=== PATIENT | female | born 1980 | race Caucasian/White ===

== ENCOUNTER 2016-12-04 18:28 | Inpatient (IN) | payer MEDICARE ==
[~2016-12-04] VITALS: Ht 167.6 cm; Wt 61.2 kg
[~2016-12-04 18:28] MED LIST: ADDE20CA PO; IBUPOTC PO; LAMI1TAB7 PO; LEVA500T PO; NORA0.35 PO; PROZ20CA11 PO; VENL37.5 OR; VENL75TA2 OR; VICO5TAB16 PO; VIIBRYD PO
[2016-12-04 18:56] LABS: MEAN CORPUSCULAR HEMOGLOBIN 29.2 pg (27.0-33.0); MEAN CORPUSCULAR HGB CONC 33.1 g/dl (32.0-36.5); MEAN CORPUSCULAR VOLUME 88.2 fl (80.0-96.0); RED CELL DISTRIBUTION WIDTH 14.3 % (11.5-14.5); WHITE BLOOD COUNT 5.6 K/mm3 (4.0-10.0)
[2016-12-04 19:09] LABS: CONTROL LINE HCG INT CTR LINE PRESENT
[2016-12-04 19:27] LABS: ALBUMIN 4.1 GM/DL (3.2-5.2); ALBUMIN/GLOBULIN RATIO 1.41 (1.00-1.93); ALKALINE PHOSPHATASE 77 U/L (45-117); ALT/SGPT 27 U/L (12-78); ANION GAP 9 MEQ/L (8-16); AST/SGOT 16 U/L (15-37); BILIRUBIN,DIRECT 0.1 MG/DL (0.0-0.2); BILIRUBIN,TOTAL 0.4 MG/DL (0.2-1.0); BLOOD UREA NITROGEN 8 MG/DL (7-18); CALCIUM LEVEL 8.4 MG/DL (8.5-10.1); CARBON DIOXIDE LEVEL 26 MEQ/L (21-32); CHLORIDE LEVEL 104 MEQ/L (98-107); CREATININE FOR GFR 0.95 MG/DL (0.55-1.02); GLOMERULAR FILTRATION RATE > 60.0 (>60); GLUCOSE, FASTING 85 MG/DL (70-105); POTASSIUM SERUM 3.9 MEQ/L (3.5-5.1); SODIUM LEVEL 139 MEQ/L (136-145)
[2016-12-04 21:39] LABS: AMPHETAMINES LEVEL URINE NEGATIVE (NEGATIVE); BENZODIAZEPINES URINE POSITIVE (NEGATIVE); COCAINE METABOLITE URINE NEGATIVE (NEGATIVE); CONTROL LINE INT CTR LINE PRESENT; METHADONE URINE NEGATIVE (NEGATIVE); OPIATES URINE NEGATIVE (NEGATIVE); TRICYCLIC ANTIDEPRESS URINE NEGATIVE (NEGATIVE)
[2016-12-04] MEDS ORDERED: PROP10TA56 PO (22:54)
[2016-12-04] MEDS ORDERED: METH20TA29 PO (22:54)
[2016-12-04] MEDS ORDERED: LORA2TAB9 PO (22:54)
[2016-12-04] MEDS ORDERED: DIAZ10TA2 PO (22:54)
[2016-12-04] MEDS ORDERED: LORazepam 1 MG TAB PO PRN (23:00)
[2016-12-04] MEDS ORDERED: ACETAMINOPHEN TAB 650MG DOSE (2X325MG) PO PRN (23:15)
[2016-12-04] MEDS ORDERED: MOM 30ML SUSPENSION UDC PO PRN (23:15)
[2016-12-04] MEDS ORDERED: MAALOX 30 ML SUSP *UDC PO PRN (23:15)
[2016-12-04] MEDS ORDERED: traZODone 50 MG TAB PO PRN (23:15)
--- NOTE | 2016-12-04 23:40 | EDDOCDS ---
Nurse's Notes [facility] Name: Robert Wagner Age: 36 yrs Sex: Female : 1980 Arrival Date: 12/04/2016 Time: 18:[address] MD: Diagnosis: Bipolar disorder, current episode depressed, severe, without psychotic features Presentation: 12/04 18:32 Presenting complaint: Patient states: intentional overdose at approx 1745 of 12 - 2 mg pml ativan tabs. called ems. alert and oriented, states she is a little tired. Adult Sepsis Screening: The patient does not have new or worsening altered mentation. Patient's respiratory rate is less than 22. Systolic blood pressure is greater than 100. Patient has a qSOFA score of 0- Negative Sepsis Screen. Suicide/Homicide risk assessment- The patient admits to and/or has been reported to be having suicidal ideations. The patient reports that he/she has not been admitted to an inpatient mental health facility in the last 30 days. The patient reports that he/she does not have a recent or current history of substance abuse. The patient reports that he/she has a prior history of suicide attempt and/or organized plan. The patient reports that he/she has experienced a significant life altering event in the last 30 days. The patient reports that he/she lacks adequate social support. The patient reports he/she has no significant chronic medical condition(s). 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 Transition of care: patient was not received from another setting of care. 18:32 Acuity: SHAHBAZ Level 3 pml 18:32 Method Of Arrival: Ambulance pml Triage Assessment: 22:44 Pt Declines HIV testing. kas2 MAMMOGRAPHY TECH: 18:38 LMP 12/04/2016 pml Historical: - Allergies: Augmentin (Vomit); - Home Meds: 1. Lamictal 100 mg oral tab 1 tab three times a day 2. fluoxetine 40 mg Oral cap 1 cap once daily 3. methylphenidate 20 mg Oral SC40 1 cap twice a day 4. propranolol 10 mg Oral tab 1 tab 3 times per day 5. lorazepam 2 mg Oral tab every 6 hours 6. oxycodone 5 mg Oral tab 1 tab daily 7. diazepam 10 mg Oral tab daily - PMHx: Bipolar disorder; - PSHx: Appendectomy; D & C; - Social history: No barriers to communication noted, The patient speaks fluent Swedish, Speaks appropriately for age, Smoking status: Patient uses tobacco products, current every day smoker. - Family history: Not pertinent. - : The pt / caregiver states he / she is not on anticoagulants. Home medication list is obtained from the patient. - Exposure Risk Screening:: None identified. Screenin:16 Screening information is obtained from the patient. Fall risk: No risks identified. kas2 Assistance ADL's: requires no assistance with activities of daily living. Abuse/DV Screen: The patient / caregiver reports he/she is: not in a situation that causes fear, pain or injury. Nutritional screening: No deficits noted. Advance Directives: Currently, there is no health care proxy. There is no active DNR order. There is no living will. There is no Power of Porcelain Waxer. home support is adequate. Assessment: 18:54 General: Appears in no apparent distress, Behavior is appropriate for age, cooperative, po pleasant. Pain: Denies pain. Neurological: Level of Consciousness is awake, alert, Oriented to person, place, time, Manufacturing Controller are equal bilaterally Moves all extremities. Speech is normal, Facial symmetry appears normal, Pupils are PERRLA. Cardiovascular: Rhythm is sinus rhythm. Respiratory: Airway is patent Respiratory effort is even, unlabored, Breath sounds are clear bilaterally. GI: Abdomen is flat, non- distended Bowel sounds present X 4 quads. Abd is soft and non tender X 4 quads. Derm: Skin is intact, is healthy with good turgor, Skin is pink, warm & dry. 19:02 General: Verbal report given by Diogo Lorenzo RN. Assumed care of patient at this time.. kas2 19:05 General: spoke with poison control, recommendations discussed with Thomas SCHAEFERP. po 20:17 General: Appears in no apparent distress, comfortable, well nourished, well groomed, kas2 Behavior is appropriate for age, cooperative. Pain: Denies pain. Neurological: Level of Consciousness is awake, alert, Oriented to person, place, time. Cardiovascular: Capillary refill < 3 seconds Heart tones S1 S2 present Rhythm is sinus rhythm No ectopy. Respiratory: Airway is patent Respiratory effort is even, unlabored, Respiratory pattern is regular, symmetrical, Breath sounds are clear bilaterally. GI: Abdomen is flat, non- distended Bowel sounds present X 4 quads. Abd is soft and non tender X 4 quads. Derm: Skin is intact, is healthy with good turgor, Skin is dry, Skin is pink, warm & dry. Skin temperature is warm. 21:30 General: Patient laying in bed sleeping at this time. No apparent distress noted. kas2 Appears comfortable. Airway patent and respiratory pattern even and unlabored. Call carrasco within reach. Will continue to monitor.. 22:27 General: Appears in no apparent distress, comfortable, Behavior is appropriate for age, kas2 cooperative. Pain: Denies pain. Neurological: Level of Consciousness is awake, alert, Oriented to person, place, time. Cardiovascular: Rhythm is sinus rhythm No ectopy. Respiratory: Airway is patent Respiratory effort is even, unlabored, Respiratory pattern is regular, symmetrical. Derm: Skin is intact, Skin is dry, Skin is pink, warm & dry. Skin temperature is warm. 22:42 General: As RN was taking patients IV out patient stated to RN " I guess I did not take kas2 enough of the pills this time.". 22:43 General: Patient moved over to P4 via stretcher with RN, and all of her [facility] belongings. Verbal report given to Reba Matos LPN.. 22:51 General: Appears in no apparent distress, comfortable, Behavior is cooperative. slm General: pt resting on stretcher s/o in room security observing . Respiratory: Airway is patent Respiratory effort is even, unlabored. Mental Health Eval: 21:49 Mental health consult is initiated at 21:30. 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 [facility] Behavioral Health: The patient is not an established patient of [facility] Behavioral Health. Referral Information: Evaluation referral is generated by [facility]. The patient was referred for evaluation because pt attempted to kill self by ingesting a handful(approximately 12 tablets) of Ativan. Subjective: The patients chief complaint is pt states, "I just couldn't take it anymore, my Bi-polar is getting worse." Pt reports feeling overwhelmed with life and feels her illness is not going to get better. Pt states, "I feel like I'm a burden to my and to my children,that's why I tried to end my life tonight." She reports suffering from Bi-polar Disorder for many years, currently seeks tx with Dr. Wood who has tired numerous medications with no effect. She describes her symptoms as "I'm really happy or severely depressed, I just wanted to fall asleep and never wake up." Pt is unable to identify any other trigger, other than her mental health illness. She continues to voice SI, no plan. Pt's was present during attempt. Pt's children(ages 7 and 10) were home, however did not witness ingestion. Mother reports the children were in the living room and pt was in the kitchen. . Delusions are denied. Patient's mood is depressed, irritable, Hallucinations are denied. 22:04 Mental Health history: Bipolar Disorder, Mental Health Admissions: Hx of ml4 hospitalizations at the [facility] and [place](Jun, 2014). Last admitted to [facility] was 07/20/12 and d/c 07/22/12. Current Outpatient Mental Health Services: Psychiatrist / Agency: Dr. Garibay, Last seen 12/02/16. . Current living environment is Family / Home Support: spouse and 2 children. The patient is . Patient presents to Emergency Department with the following symptoms within the past 2 weeks: anxiety, decreased appetite, depressed mood, feelings of helplessness/hopelessness, poor concentration, poor impulse control, sleep disturbance - insomnia, suicidal ideation with attempt/gesture by pills. Substance abuse: Patient uses tobacco less than a 1/2 a pack Frequency daily. Mental status exam: Patients appearance is appropriate, Patient's behavior is cooperative, Speech is normal. Affect is flat. Mood is depressed. Hallucinations are denied. Appetite is poor during the day, but binges at night. Memory is good. Energy level is normal. Content of thought is depressive. due to suicide attempt Thought process is intact. Cognitive level is oriented to person, place, time and situation Patient's insight is poor. Judgement is poor. Rapport with interviewer is guarded. Suicidal Ideation is present with no specific plan. Homicidal ideation is denied. Disposition: Medically cleared for disposition by Yennifer GUSTAFSON. Narrative: Awaiting medical clearance.... 22:36 Disposition: Medically cleared for disposition by Yennifer GUSTAFSON Psychiatric Consult 4 is performed by phone with Dr Jacqueline Saleem. [facility] Admission Criteria: The patient has had a suicide attempt in the recent past. as described above . The patient is experiencing suicidal ideation. The patient requires continuous observation and/or control to protect self, others or property. The patient's care requires a multi-modal treatment plan under close supervision and coordination due to the complexity and severity of the patient's symptoms. The patient requires administration and monitoring of psychoactive medications by skilled medical providers due to the side effects of the psychoactive medications or significant dosage adjustments. Legal Status: Patient's legal status will be Emergency admission: . [place] Safe Act: [place] Safe Act is applicable to this patient. The patient poses a risk to self or other and the Nursing Rehabilitation Nurse has been notified. He/She will enter the patient's data. DSM-V Differential Diagnosis: Bipolar I Disorder (F31.0) Current or most recent episode unspecified (F31.9). Narrative: Notice of Status and Rights, FAQ, and Bill of Rights was given at bedside. Awaiting: transfer to [facility]. 23:11 Insurance Pre-Certification: Not Required, "Straight Medicare" . ml4 Vital Signs: 18:39 BP 130 / 88 (auto/); kas2 18:40 BP 120 / 90 RA Supine (auto/reg); Pulse 84; Resp 16; Temp 98.0(O); Pulse Ox 99% on R/A; rs6 Weight 54.43 kg; Height 5 ft. 6 in. (167.64 cm) (R); Pain 0/10; 18:40 Pulse 89 MON; Pulse Ox 98% ; kas2 18:40 Resp 18; Temp 99.0(O); Pain 0/10; kas2 18:45 BP 125 / 88 (auto/); kas2 18:45 Pulse 83 MON; Pulse Ox 98% ; kas2 19:00 BP 115 / 82 (auto/); kas2 19:00 Pulse 79 MON; Pulse Ox 97% ; kas2 19:15 BP 113 / 84 (auto/); kas2 19:15 Pulse 84 MON; kas2 19:30 BP 104 / 72 (auto/); kas2 19:30 Pulse 80 MON; kas2 19:45 BP 93 / 65 (auto/); kas2 19:45 Pulse 84 MON; kas2 20:00 BP 108 / 67 (auto/); kas2 20:00 Pulse 83 MON; kas2 20:15 BP 115 / 86 (auto/); kas2 20:15 Pulse 83 MON; kas2 20:30 BP 118 / 82 (auto/); kas2 20:30 Pulse 83 MON; kas2 20:30 Resp 20; Temp 97.9(O); Pain 0/10; kas2 20:45 BP 123 / 86 (auto/); kas2 20:45 Pulse 87 MON; kas2 21:00 BP 115 / 82 (auto/); kas2 21:00 Pulse 87 MON; kas2 21:15 BP 105 / 79 (auto/); kas2 21:15 Pulse 90 MON; Pulse Ox 97% ; kas2 21:30 BP 113 / 79 (auto/); kas2 21:30 Pulse 85 MON; Pulse Ox 97% ; kas2 21:45 BP 104 / 72 (auto/); kas2 21:45 Pulse 90 MON; Pulse Ox 95% ; kas2 22:00 BP 97 / 59 (auto/); kas2 22:00 Pulse 89 MON; kas2 22:15 BP 102 / 62 (auto/); kas2 22:15 Pulse 82 MON; Pulse Ox 95% ; kas2 22:30 BP 106 / 65 (auto/); kas2 22:30 Pulse 88 MON; Pulse Ox 96% ; kas2 23:36 BP 103 / 74; Pulse 95; Resp 16; Temp 98.8; Pulse Ox 96% on R/A; Pain 2/10; slm 18:40 Body Mass Index 19.37 (54.43 kg, 167.64 cm) rs6 Vitals: 18:40 Log In Time N/A - ambulance arrival. rs6 ED Course: 18:28 Patient visited by Mary Donohue, Skimmer Reverberatory. deg 18:28 Patient moved to Waiting deg 18:29 Diogo Lorenzo,CAREN is Primary Nurse. deg 18:29 Patient moved to 2 deg 18:33 [facility] le 18:34 Triage Initiated pml 18:35 Patient visited by Yennifer Lombardi FNP. le 18:35 Patient visited by Yennifer Lombardi FNP. le 18:39 Patient visited by Mercy Martin,CAREN. pml 18:40 Patient visited by Mercy Martin,CAREN. pml 18:40 Pt greeted and oriented to ED. Patient advised of names of staff involved in care, rs6 location of call carrasco, wait times and NPO status. Patient has correct armband on for positive identification. Placed in psych safe attire. Bed in low position. Call light in reach. Side rails up X 1. fbi investigator on. Pulse ox on. NIBP on. 18:41 Patient visited by Carolyn Vora, HAND TIER. rs6 18:58 Patient visited by Diogo Lorenzo,CAREN. po 19:01 Radha Webster RN is Primary Nurse. kas2 19:06 Primary Nurse role handed off by Diogo Lorenzo,RN po 19:16 Patient visited by Justin Rogers PCA. jmv 19:16 EKG done. (by ED staff). Reviewed by Yennifer GUSTAFSON. jmv 20:09 [facility] Payment Agreement was scanned into [employer] and attached to record. ks16 20:17 Patient visited by Radha Webster RN. kas2 20:19 Patient visited by Radha Webster RN. kas2 21:03 Patient visited by Radha Webster RN. kas2 21:18 Drug Eval Toxicology ED Only Sent. jlm 21:35 Patient visited by Radha Webster RN. kas2 22:28 Patient visited by Radha Webster RN. kas2 22:37 Patient moved to [address] 22:44 Patient visited by Radha Webster RN. kas2 22:44 Discontinued IV bleeding controlled, pressure dressing applied, No redness/swelling at [facility] site. No procedures done that require assistance. 22:52 Patient visited by Reba Maots LPN. [facility] 22:52 The patient / caregiver is instructed regarding the plan of care and ED course. sl 22:59 Jacqueline Saleem is Hospitalizing Provider. le 23:09 Patient visited by Iker Miranda. mas 23:10 [facility] Legal paperwork was scanned into [employer] and attached to record. ml4 23:37 Patient visited by Reba Matos LPN. sl Attachments: 23:10 [facility] Legal paperwork ml4 Order Results: Lab Order: Acetaminophen Level; SPEC'M 12/04/16 18:39 Test: ACETAMINOPHEN LEVEL; Value: < 2.0; Range: 10.0-30.0; Abnormal: Below low normal; Units: UG/ML; Status: F Lab Order: Basic Metabolic Profile; SPEC'M 12/04/16 18:39 Test: GLUCOSE, FASTING; Value: 85; Range: 70-105; Units: MG/DL; Status: F Test: BLOOD UREA NITROGEN; Value: 8; Range: 7-18; Units: MG/DL; Status: F Test: CREATININE FOR GFR; Value: 0.95; Range: 0.55-1.02; Units: MG/DL; Status: F Test: SODIUM LEVEL; Range: 136-145; Units: MEQ/L; Status: I Test: POTASSIUM SERUM; Range: 3.5-5.1; Units: MEQ/L; Status: I Test: CHLORIDE LEVEL; Range: 98-107; Units: MEQ/L; Status: I Test: CARBON DIOXIDE LEVEL; Range: 21-32; Units: MEQ/L; Status: I Test: ANION GAP; Range: 8-16; Units: MEQ/L; Status: I Test: CALCIUM LEVEL; Range: 8.5-10.1; Units: MG/DL; Status: I Test: GLOMERULAR FILTRATION RATE; Value: > 60.0; Range: >60; Status: F Test: SODIUM LEVEL; Value: 139; Range: 136-145; Units: MEQ/L; Status: F Test: POTASSIUM SERUM; Value: 3.9; Range: 3.5-5.1; Units: MEQ/L; Status: F Test: CHLORIDE LEVEL; Value: 104; Range: 98-107; Units: MEQ/L; Status: F Test: CARBON DIOXIDE LEVEL; Value: 26; Range: 21-32; Units: MEQ/L; Status: F Test: ANION GAP; Value: 9; Range: 8-16; Units: MEQ/L; Status: F Test: CALCIUM LEVEL; Value: 8.4; Range: 8.5-10.1; Abnormal: Below low normal; Units: MG/DL; Status: F Test Note: ; Units are mL/min/1.73 m2 Chronic Kidney Disease Staging per NKF: Stage I & II GFR >=60 Normal to Mildly Decreased Stage III GFR 30-59 Moderately Decreased Stage IV GFR 15-29 Severely Decreased Stage V GFR <15 Very Little GFR Left ESRD GFR <15 on EMPLOYEE BENEFITS COORDINATOR Lab Order: Complete Blood Count; SPEC'M 12/04/16 18:39 Test: WHITE BLOOD COUNT; Value: 5.6; Range: 4.0-10.0; Units: K/mm3; Status: F Test: RED BLOOD COUNT; Value: 5.22; Range: 4.00-5.40; Units: M/mm3; Status: F Test: HEMOGLOBIN; Value: 15.2; Range: 12.0-16.0; Units: g/dl; Status: F Test: HEMATOCRIT; Value: 46.0; Range: 36.0-47.0; Units: %; Status: F Test: MEAN CORPUSCULAR VOLUME; Value: 88.2; Range: 80.0-96.0; Units: fl; Status: F Test: MEAN CORPUSCULAR HEMOGLOBIN; Value: 29.2; Range: 27.0-33.0; Units: pg; Status: F Test: MEAN CORPUSCULAR HGB CONC; Value: 33.1; Range: 32.0-36.5; Units: g/dl; Status: F Test: RED CELL DISTRIBUTION WIDTH; Value: 14.3; Range: 11.5-14.5; Units: %; Status: F Test: PLATELET COUNT, AUTOMATED; Value: 225; Range: 150-450; Units: k/mm3; Status: F Lab Order: Drug Eval Toxicology ED Only; SPEC'M 12/04/16 21:14 Test: AMPHETAMINES LEVEL URINE; Value: NEGATIVE; Range: NEGATIVE; Status: F Test: BARBITURATES URINE; Value: NEGATIVE; Range: NEGATIVE; Status: F Test: BENZODIAZEPINES URINE; Value: POSITIVE; Range: NEGATIVE; Abnormal: Above high normal; Status: F Test: CANNABINOIDS URINE; Value: NEGATIVE; Range: NEGATIVE; Status: F Test: COCAINE METABOLITE URINE; Value: NEGATIVE; Range: NEGATIVE; Status: F Test: METHADONE URINE; Value: NEGATIVE; Range: NEGATIVE; Status: F Test: OPIATES URINE; Value: NEGATIVE; Range: NEGATIVE; Status: F Test: TRICYCLIC ANTIDEPRESS URINE; Value: NEGATIVE; Range: NEGATIVE; Status: F Test Note: ; ALL PRESUMPTIVE POSITIVE FINDINGS ARE UNCONFIRMED NORMAL VALUES THRESHOLD IN NG/ML AMPHETAMINES 1000 METHAMPHETAMINES 1000 BARBITURATES 300 BENZODIAZEPINES 300 CANNABINOIDS (THC) 50 COCAINE METABOLITE 300 METHADONE 300 OPIATES 300 PHENCYCLIDINE 25 TRICYCLIC ANTIDEPRESSANTS 1000 RESULTS ARE FOR MEDICAL PURPOSES ONLY. ALL URINE SPECIMENS WILL BE SAVED FOR 3 DAYS. IF CONFIRMATION OF A PRESUMPTIVE POSTIVE SCREEN RESULT IS DESIRED, CALL CHEMISTRY ([phone]) AND REQUEST URINE TO BE SENT TO REFERENCE LAB. FOR A LIST OF CLOSELY RELATED COMPOUNDS PLEASE CALL THE LAB. Lab Order: Ethyl Alcohol (ethanol); SPEC12/04/16 18:39 Test: ETHYL ALCOHOL (ETHANOL); Value: < 0.003; Range: 0.000-0.010; Units: %; Status: F Lab Order: HCG,Serum Qualitative; SPEC12/04/16 18:39 Test: HCG, SERUM QUALITATIVE; Value: NEGATIVE; Range: NEGATIVE; Status: F Lab Order: Liver Profile; 12/04/16 18:39 Test: AST/SGOT; Value: 16; Range: 15-37; Units: U/L; Status: F Test: ALT/SGPT; Value: 27; Range: 12-78; Units: U/L; Status: F Test: ALKALINE PHOSPHATASE; Value: 77; Range: 45-117; Units: U/L; Status: F Test: BILIRUBIN,TOTAL; Value: 0.4; Range: 0.2-1.0; Units: MG/DL; Status: F Test: BILIRUBIN,DIRECT; Value: 0.1; Range: 0.0-0.2; Units: MG/DL; Status: F Test: TOTAL PROTEIN; Value: 7.0; Range: 6.4-8.2; Units: GM/DL; Status: F Test: ALBUMIN; Value: 4.1; Range: 3.2-5.2; Units: GM/DL; Status: F Test: ALBUMIN/GLOBULIN RATIO; Value: 1.41; Range: 1.00-1.93; Status: F Lab Order: Salicylate Level; SPEC12/04/16 18:39 Test: SALICYLATE LEVEL; Value: 3.9; Range: 5.0-30.0; Abnormal: Below low normal; Units: MG/DL; Status: F Lab Order: Thyroid Stimulating Hormone; SPEC12/04/16 18:39 Test: THYROID STIMULATING HORMONE; Value: 0.875; Range: 0.358-3.740; Units: uIU/ML; Status: F Outcome: 22:44 No special radiology studies were completed. kas2 22:52 Property removed, inventory done, secured in belongings bag- placed in locked locker. [facility] 22:59 Decision to Hospitalize by Provider. le 23:20 Discharge Assessment: patient administered narcotics - no. [facility] 23:37 The following High Risk Discharge criteria are identified: None. Admitted to [facility] accompanied by tech, via wheelchair, with chart. Condition: good. 23:39 Patient left the ED. [facility] Signatures: Mary Donohue, Sk[employer] R[employer]ber[employer] Unit deg Diogo Lorenzo,RN RN po Elvira Crews, PSA PSA ml4 Yennifer Lombardi, ALLIGATOR SHEAR OPERATOR ALLIGATOR SHEAR OPERATOR Iker Ames Paulina,RN RN Reba Robledo,INSTALLERS MECHANICAL INSTALLERS MECHANICAL [facility] Bria Chauhan, [employer] jlm Carolyn Vora, HAND TIER HAND TIER rs6 Jacqueline Garcia, Reg Reg ks16 Radha WebsterRN CAREN [facility] Justin Rogers, HAND TIER HAND TIER jmv Corrections: (The following items were deleted from the chart) 22:16 21:49 Subjective: The patients chief complaint is pt states, "I just couldn't take it ml4 anymore, my Bi-polar is getting worse." Pt reports feeling overwhelmed with life and feels her illness is not going to get better. Pt states, "I feel like I'm a burden to my and to my children." . ml4 MTDD
--- NOTE | 2016-12-04 23:40 | EDDOCDS ---
Physician Documentation [facility] Name: Robert Wagner Age: 36 yrs Sex: Female : 1980 Arrival Date: 12/04/2016 Time: 18:28 Bed [facility] Private MD: Disposition: 12/04 22:59 Critical Care: Critical care not applicable. le Disposition: 12/04/16 22:59 Hospitalization ordered by Jacqueline Saleem for Inpatient Admission. Preliminary diagnosis is Bipolar disorder, current episode depressed, severe, without psychotic features. - Bed requested for Admit. - Status is Inpatient Admission. slm - Condition is Stable. - Problem is an acute exacerbation. - Symptoms are unchanged. Historical: - Allergies: Augmentin (Vomit); - Home Meds: 1. Lamictal 100 mg oral tab 1 tab three times a day 2. fluoxetine 40 mg Oral cap 1 cap once daily 3. methylphenidate 20 mg Oral SC40 1 cap twice a day 4. propranolol 10 mg Oral tab 1 tab 3 times per day 5. lorazepam 2 mg Oral tab every 6 hours 6. oxycodone 5 mg Oral tab 1 tab daily 7. diazepam 10 mg Oral tab daily - PMHx: Bipolar disorder; - PSHx: Appendectomy; D & C; - Social history: No barriers to communication noted, The patient speaks fluent Maori, Speaks appropriately for age, Smoking status: Patient uses tobacco products, current every day smoker. - Family history: Not pertinent. - : The pt / caregiver states he / she is not on anticoagulants. Home medication list is obtained from the patient. - Exposure Risk Screening:: None identified. BILL RECAPITULATION CLERK: 18:38 LMP 12/04/2016 pml Vital Signs: 18:39 BP 130 / 88 (auto/); kas2 18:40 BP 120 / 90 RA Supine (auto/reg); Pulse 84; Resp 16; Temp 98.0(O); Pulse Ox 99% on R/A; rs6 Weight 54.43 kg / 120 lbs; Height 5 ft. 6 in. (167.64 cm) (R); Pain 0/10; 18:40 Pulse 89 MON; Pulse Ox 98% ; kas2 18:40 Resp 18; Temp 99.0(O); Pain 0/10; kas2 18:45 BP 125 / 88 (auto/); kas2 18:45 Pulse 83 MON; Pulse Ox 98% ; kas2 19:00 BP 115 / 82 (auto/); kas2 19:00 Pulse 79 MON; Pulse Ox 97% ; kas2 19:15 BP 113 / 84 (auto/); kas2 19:15 Pulse 84 MON; kas2 19:30 BP 104 / 72 (auto/); kas2 19:30 Pulse 80 MON; kas2 19:45 BP 93 / 65 (auto/); kas2 19:45 Pulse 84 MON; kas2 20:00 BP 108 / 67 (auto/); kas2 20:00 Pulse 83 MON; kas2 20:15 BP 115 / 86 (auto/); kas2 20:15 Pulse 83 MON; kas2 20:30 BP 118 / 82 (auto/); kas2 20:30 Pulse 83 MON; kas2 20:30 Resp 20; Temp 97.9(O); Pain 0/10; kas2 20:45 BP 123 / 86 (auto/); kas2 20:45 Pulse 87 MON; kas2 21:00 BP 115 / 82 (auto/); kas2 21:00 Pulse 87 MON; kas2 21:15 BP 105 / 79 (auto/); kas2 21:15 Pulse 90 MON; Pulse Ox 97% ; kas2 21:30 BP 113 / 79 (auto/); kas2 21:30 Pulse 85 MON; Pulse Ox 97% ; kas2 21:45 BP 104 / 72 (auto/); kas2 21:45 Pulse 90 MON; Pulse Ox 95% ; kas2 22:00 BP 97 / 59 (auto/); kas2 22:00 Pulse 89 MON; kas2 22:15 BP 102 / 62 (auto/); kas2 22:15 Pulse 82 MON; Pulse Ox 95% ; kas2 22:30 BP 106 / 65 (auto/); kas2 22:30 Pulse 88 MON; Pulse Ox 96% ; kas2 23:36 BP 103 / 74; Pulse 95; Resp 16; Temp 98.8; Pulse Ox 96% on R/A; Pain 2/10; slm 18:40 Body Mass Index 19.37 (54.43 kg, 167.64 cm) rs6 MDM: 18:29 Consult PFS/PSA/Filling Technician ordered. sd1 18:29 Consult PFS/PSA/Filling Technician: Patient's case requires discussion with on-call sd1 Psychiatrist ordered. 18:29 PSA/PFS to call Nursing [employer] Advanced Operator Maintainer, to enter patient data on [place] Safe Act if patient sd1 involuntarily admitted or transferred for SI or HI ordered. 18:29 Water Rights Specialist/Pulse Ox/q 15 min VS ordered. sd1 18:29 Confirm accurate psychiatric medication list and times of last dosage ordered. sd1 18:29 Detain Pt Until Medically/PFS Cleared ordered. sd1 18:29 IV Saline Lock ordered. sd1 18:30 Acetaminophen Level Ordered. EDMS 18:30 Basic Metabolic Profile Ordered. EDMS 18:30 Complete Blood Count Ordered. EDMS 18:30 Drug Eval Toxicology ED Only Ordered. EDMS 18:30 Ethyl Alcohol (ethanol) Ordered. EDMS 18:30 HCG,Serum Qualitative Ordered. EDMS 18:30 Liver Profile Ordered. EDMS 18:30 Salicylate Level Ordered. EDMS 18:30 Thyroid Stimulating Hormone Ordered. EDMS 18:30 ECG WITH READING ER PHYS+CARDIAG ordered. EDMS 18:34 Call Poison Control ordered. le 19:35 Acetaminophen Level Reviewed. le 19:35 Basic Metabolic Profile Reviewed. le 19:35 Salicylate Level Reviewed. le 19:35 Complete Blood Count Reviewed. le 19:35 Ethyl Alcohol (ethanol) Reviewed. le 19:35 HCG,Serum Qualitative Reviewed. le 19:35 Liver Profile Reviewed. le 19:35 Thyroid Stimulating Hormone Reviewed. le 20:04 Financial registration complete. [email or web address] 20:09 [facility] Payment Agreement was scanned into S[employer]wig[employer] and attached to record. [email or web address] 21:45 Consult PFS/PSA/Filling Technician complete. ml4 21:45 Consult PFS/PSA/Filling Technician: Patient's case requires discussion with on-call 4 Psychiatrist complete. 21:45 PSA/PFS to call Nursing [employer] Advanced Operator Maintainer, to enter patient data on [place] Safe [place] if patient ml4 involuntarily admitted or transferred for SI or HI complete. 22:29 Drug Eval Toxicology ED Only Reviewed. le 22:32 The patient has been medically cleared for psychiatric evaluation, admission and/or le transfer. 22:33 BED REQUEST+ADM ordered. EDMS 23:06 Admit to [facility]: ordered. EDMS 23:07 REGULAR DIET ordered. EDMS 23:10 [facility] Legal paperwork was scanned into Sqwiggle and attached to record. ml4 Signatures: Dispatcher [employer] EDMS Chiquita Mariee MD MD sd1 Diogo Lorenzo,RN RN po Mars, Elvira, PSA PSA ml4 Yennifer Lombardi, LEAD PROJECT MANAGER Mercy Sesay,RN RN Reba Robledo,STATION ATTENDANT STATION ATTENDANT slJacqueline Bryant, Reg Reg [email or web address] The chart was reviewed and I authenticate all verbal orders and agree with the evaluation and treatment provided.Corrections: (The following items were deleted from the chart) 21:11 19:36 Straight cath ordered. [email or web address] Attachments: 20:09 [facility] Payment Agreement [email or web address] MTDD
[2016-12-05 00:02] VITALS: BP 103/68
[2016-12-05] MEDS: FLUoxetine 20 MG CAP PO SCH (09:31)
[2016-12-05] MEDS: PROPRANOLOL 10 MG TAB PO SCH ×3 (09:32→21:43)
[2016-12-05] MEDS: METHYLPHENIDATE 5 MG TAB PO SCH ×2 (09:32→15:21)
[2016-12-05] MEDS: lamoTRIgine 100MG TAB PO SCH ×3 (09:32→21:42)
[2016-12-05 18:00] VITALS: BP 109/74
[2016-12-05] MEDS ORDERED: risperiDONE 1 MG TAB PO SCH (21:00)
--- NOTE | 2016-12-06 06:15 | HPE ---
DATE OF ADMISSION: 12/05/2016 Please refer to the psychiatric history and evaluation for further details on this admission. This examination and history is intended for medical issues which may need treatment, followup or consultation on this 36-year-old female. ALLERGIES: - AMOXICILLIN - AZITHROMYCIN - CLAVULANIC ACID SOCIAL HISTORY: She is . She has two children. She has history of alcohol abuse. She smokes one pack of cigarettes per day. Recreational drug use - none. PAST MEDICAL HISTORY: Negative. PAST SURGICAL HISTORY: approximately 14 years ago. She has had wisdom teeth extraction and appendectomy. FAMILY HISTORY: Noncontributory. LABORATORY STUDIES: CBC normal. Electrolytes normal. BUN and creatinine 8 and 0.95. Urine was positive for benzodiazepines. REVIEW OF SYSTEMS: Ten systems review was done and was negative. PHYSICAL EXAMINATION: Height 66 inches. Weight 61 kg. Body mass index (BMI) 21.4. 36-year-old cooperative female in no acute distress. Vital signs stable. The patient is alert and oriented times three. Pupils equal and reactive to light. Extraocular movements intact. Cornea and sclera clear. Conjunctiva normal. No facial asymmetry. Pharynx, tongue and gums pink and moist. Tongue is midline. Neck is supple, without lymphadenopathy. No thyromegaly. No goiter. Chest clear to auscultation, without wheeze or retraction. Heart is regular. Abdomen benign. Bowel sounds positive. Genitourinary ()/Rectal: Not done. Extremities show equal strength, full range of motion. No cyanosis, clubbing or edema. Peripheral pulses equal and palpable bilaterally. Skin is warm and dry. IMPRESSION AND PLAN: 1. Psychiatric. Plan per psychiatry. 2. No acute medical issues.
[2016-12-06 06:25] VITALS: BP 94/52
[2016-12-06] MEDS: PROPRANOLOL 10 MG TAB PO SCH ×2 (09:00→15:49)
[2016-12-06] MEDS: METHYLPHENIDATE 5 MG TAB PO SCH ×2 (09:18→15:48)
[2016-12-06] MEDS: FLUoxetine 20 MG CAP PO SCH (09:18)
[2016-12-06] MEDS: lamoTRIgine 100MG TAB PO SCH ×3 (09:18→21:35)
[2016-12-06 15:49] VITALS: BP 100/64
[2016-12-06] MEDS ORDERED: hydrOXYzine 25 MG TAB PO PRN (16:15)
--- NOTE | 2016-12-06 17:19 | IPN ---
DATE: 12/06/2016 Patient was admitted after an overdose on Ativan. She was very depressed, feeling overwhelmed, and stating "I can't take it anymore." Patient has gone through several psychotropic medication changes lately. SUBJECTIVE: Patient is focused on discharge issues and minimizing the event that led to her admission. Patient is asking me to get a meeting with her today and discharge her. Patient continues with psychomotor retardation, is denying suicidal or homicidal ideation, but again she is focused on discharge issues only. OBJECTIVE: Patient is depressed, anxious, labile, with psychomotor retardation. Patient is minimizing symptoms. MENTAL STATUS EXAMINATION: Patient is dressed in [facility]. Patient is cooperative, but anxious. Speech is slow and monotone. Mood is depressed and anxious. Affect is congruent with mood. No evidence of psychosis. No delusions or hallucinations. Memory is fair. Denies suicidal or homicidal ideation, but again she is focused on discharge issues and minimizing all the symptoms. Insight and judgment is limited. ASSESSMENT: 1. Major depression. PLAN: 1. Discontinue Risperdal 1 mg by mouth nightly. 2. Decrease Lamictal to 100 mg by mouth twice a day. 3. Decrease Prozac to 20 mg by mouth every morning. 4. Discontinue Ritalin. 5. Discontinue propranolol. 6. Discontinue trazodone. 7. Continue with medication management and individual and group therapy.
[2016-12-06 18:00] VITALS: BP 100/64
--- NOTE | 2016-12-06 20:59 | MHHPE ---
DATE OF ADMISSION: 12/05/2016 DATE OF SERVICE: 12/05/2016 HISTORY OF PRESENT ILLNESS: This is a 36-year-old white woman who was admitted after she took anywhere from 12 to 15 tablets of Ativan as a suicidal attempt. Basically, the patient indicated that she was feeling that she was a burden to her family, that she is overwhelmed with dealing with her bipolar disorder and she feels that treatment has never been helpful. She has been seeing a prior psychiatrist in the area, Dr. Wood for the past six years and he has her on the following medications: Lamictal 100 mg three times a day, Prozac 40 mg daily. He has her diagnosed at bipolar disorder but the patient says that she has tried lithium and has tried many other atypicals with either no response or side effects. This includes Seroquel which she said caused her blood pressure to decrease. She also had some side effects with the Geodon but was not specific about it. She said Abilify was not effective. She was on Latuda but is vague as to why that was not effective. She said she was prescribes Zyprexa and she gained some weight with that. She does not want anything that is going to cause weight gain. She says she was on Rexulti but it was too expensive and she could not afford it. She said lithium did not help. I did see a prior hospitalization to the inpatient mental health unit in 2012 had mentioned that she was being treated with Saphris at one point and Effexor was being tapered at that point. Also mentioned in that record was that the patient has been on Wellbutrin and Viibryd. She says, Dr. Wood had given her a prescription for Risperdal the last time that he saw her, but she has not even picked it up from the pharmacy yet because she ended up in the hospital. In addition, Dr. Wood has prescribed her methylphenidate 20 mg twice a day. It is not clear whether the patient actually has ADHD. She says that he gives her the methylphenidate, "because I have problems with focus and my energy level". She says that he has also prescribed oxycodone 5 mg daily for her but will prescribe it only for stints of up to 2 weeks at a time because he does not want her to get addicted to it. She says that he prescribes the oxycodone for her also to help her with her mood. In addition, Dr. Wood prescribes lorazepam 2 mg every 6 hours as needed, diazepam 10 mg daily and propranolol 10 mg three times a day. The patient states that she spends more time in depressed episodes and only occasionally has manic episodes. I asked her to described the manic episodes and she describes that she gets promiscuous and that she has increased spending. She stated that she tends to drink or that she has had at least one manic episode time when she was drinking to the point where she was passing out. She states that she has had more hypomanic episodes where she says that, "I feel like I am full of ideas and I don't want to sleep. I feel like I want to save the world". So basically, she describes having more depressed episodes. I did review a record from an initial assessment that was done by Boy Vu on 08/20/2013, when she was seen at [facility] for a brief time by Dr. Brunson. In his initial assessment, he describes that when she is depressed it can go on for weeks, sometimes months as she sleeps more than usual , loses interest in activities. She feels tired. Her appetite fluctuates. She has suicidal thoughts when depressed. When she feels hypomanic or manic, she describes to him she is either in an elated mood or gets very irritable and she requires very little sleep, has excess energy. She starts many projects that she does not complete and spends more money than usual and has racing thoughts. She describes that occasionally, she has felt she has lost touch with reality and she felt that her daughter's piggy bank was talking to her and she also indicates she said her alcohol intake really goes up. She indicates that she said that these episodes are happening once or twice a year. She indicated that the episodes are more frequent episodes of hypomania. When her mood is elated, she feels good, but the disruption in activity does not occur. According to the records from Dr. Brunson, he did not elicit any history of any obsessions or compulsions nor any chronic anxiety or posttraumatic stress syndrome. She indicated that she has some night granado and some vivid dreams, which are not related to any past traumatic events. She tells me today, however, that she has a lot of anxiety and that this is why Dr. Wood prescribes so many benzodiazepines for her. Dr. Brunson has a very good description of all the psychotropic medications that apparently she indicated she had been given so far to include Zoloft, Effexor, Wellbutrin, Pristiq, Remeron, Abilify, Viibryd, Seroquel, Adoral, Provigil, Klonopin, Ativan, Saphris, Lamictal, Depakote, Geodon, Latuda, Topamax, oxycodone, trazodone, Minipress. She was on thyroid medication at some point and she received electroconvulsive therapy on one occasion but according to Dr. Brunson , the indications were vague at that point and it seemed that she may not have completed the treatment. Of note, Dr. Brunson describes that the patient told him that Dr. Wood had prescribe it for depression, but she started to take too many of them then she ran out and she went through withdrawal. She indicated that she had been prescribed Klonopin and Ativan at one point, but she was hesitant to use them because she was concerned about potential for addiction. She told Dr. Brunson that the Adderall was given to her to enhance her appetite but that it was not effective. Yet, she told me that the methylphenidate she is on now is because she had trouble with her energy level and focusing. It seems that she continued to see Dr. Brunson but it was for a brief period and basically, he prescribed Latuda for her and continued the Lamictal that she had been on already. She kept asking Dr. Brunson to prescribe an amphetamine for her and he did not feel that it was indicated clinically. PAST PSYCHIATRIC HISTORY: The patient has received treatment for many years as I have noted above. It seems that this is only her second psychiatric hospitalization, however, she had one prior psychiatric admission which was only an overnight admission from 07/20/2012 until 07/22/2012. She indicated she called 911. She was feeling depressed and wanted to talk to someone. Somehow she was admitted but it was not clear the reason for the admission. She says that she has never made any other suicidal attempts. As I said she was treated at one point with electroconvulsive therapy. The indications are not clear and those records are not available. She said she was admitted to the [facility] once for treatment. FAMILY HISTORY: Her father has been treated for depression. There is no history of suicide in the family. SOCIAL HISTORY: She admits to having episodes where she heavily abuses alcohol to the point of passing out stating that the last time her had to stop working so that he could look after her. She insinuates that these tend to happen more when she is having a manic episode but she is somewhat vague about this. It is concerning that according to her records from Dr. Brunson, when he saw her as an outpatient in the past that she indicated that she did misuse the oxycodone that Dr. Wood prescribed her for depression. She denies any history of using any drugs other than alcohol. PAST MEDICAL HISTORY: The patient denies any medical problems. ABUSE HISTORY: She denies any history of any physical or sexual abuse. REVIEW OF SYSTEMS: Vital Signs: Blood pressure 117/84, pulse 84, height 6"5", weight 61 kg. Appearance: She is casually dressed. Hygiene appears to be intact. Neuromuscular system: There is no involuntary movements noted and her gait was normal. MENTAL STATUS EXAMINATION: She is alert and oriented times three. Eye contact is fair. Psychomotor activity is normal. No formal thought disorder noted. Her mood is depressed. Her affect is full range and appropriate. She is not psychotic. Denies being suicidal today or homicidal. Concentration is fair. Memory intact. Insight and judgment poor. DIAGNOSES: Bipolar disorder type 1, current episode depressed, severe without psychotic features. TREATMENT PLAN: At this point, I reviewed the patient's medications with her. I discussed with the patient that with the history that she is giving of bipolar disorder that I am concerned that she is only on Lamictal 100 mg three times a day and she continues to say that she does not feel that bipolar disorder is under control. I recommended that she really needs to be getting an atypical antipsychotic. She basically is saying that she has been on everything and nothing has helped. More recently, the Rexulti was prescribed but she said it was too expensive and she could not afford it. Dr. Wood had just prescribed Risperdal for her so she did finally agree to try Risperdal 1 mg nightly. She had not even started it yet or picked it up from the pharmacy. Also I discussed with the patient my concern of the high levels of benzodiazepines that she takes. I decreased her Ativan from 2 mg every 6 hours to 1 mg every 6 hours. She says that she takes it on a as needed basis. I also did not order the diazepam 10 mg daily. She says that she rarely takes that. I suspect that she is probably minimizing at this point, how much benzodiazepines she takes because she also tells me that she takes the lorazepam only as needed and usually only once a day. I do have concerns about the patient's history of oxycodone and having shared with Dr. Brunson in the past that she was misusing it. Also I am concerned about the fact that she just overdosed on the Ativan and she does admit that there are times, for example, the week before, she had taken about three Ativan. She said she even called poison control and they told her that was okay, but not to take anymore. I feel that before the patient is discharged, that there should be a meeting with the to make sure that he monitors her medications, particularly her benzodiazepines. GRAHAM
--- NOTE | 2016-12-07 00:40 | EDDOCDS ---
Nurse's Notes [facility] Name: Robert Wagner Age: 36 yrs Sex: Female : 1980 Arrival Date: 12/04/2016 Time: 18:[address] MD: Diagnosis: Bipolar disorder, current episode depressed, severe, without psychotic features Presentation: 12/04 18:32 Presenting complaint: Patient states: intentional overdose at approx 1745 of 12 - 2 mg pml ativan tabs. called ems. alert and oriented, states she is a little tired. Adult Sepsis Screening: The patient does not have new or worsening altered mentation. Patient's respiratory rate is less than 22. Systolic blood pressure is greater than 100. Patient has a qSOFA score of 0- Negative Sepsis Screen. Suicide/Homicide risk assessment- The patient admits to and/or has been reported to be having suicidal ideations. The patient reports that he/she has not been admitted to an inpatient mental health facility in the last 30 days. The patient reports that he/she does not have a recent or current history of substance abuse. The patient reports that he/she has a prior history of suicide attempt and/or organized plan. The patient reports that he/she has experienced a significant life altering event in the last 30 days. The patient reports that he/she lacks adequate social support. The patient reports he/she has no significant chronic medical condition(s). Status: Patient is not a technical services assistant or dependent. Transition of care: patient was not received from another setting of care. 18:32 Acuity: SHAHBAZ Level 3 pml 18:32 Method Of Arrival: Ambulance pml Triage Assessment: 22:44 Pt Declines HIV testing. 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 Lamictal 100 mg oral tab 1 tab three times a day 2. fluoxetine 40 mg Oral cap 1 cap once daily 3. methylphenidate 20 mg Oral SC40 1 cap twice a day 4. propranolol 10 mg Oral tab 1 tab 3 times per day 5. lorazepam 2 mg Oral tab every 6 hours 6. oxycodone 5 mg Oral tab 1 tab daily 7. diazepam 10 mg Oral tab daily - PMHx: Bipolar disorder; - PSHx: Appendectomy; D & C; - Social history: No barriers to communication noted, The patient speaks fluent Mongolian, Speaks appropriately for age, Smoking status: Patient uses tobacco products, current every day smoker. - Family history: Not pertinent. - : The pt / caregiver states he / she is not on anticoagulants. Home medication list is obtained from the patient. - Exposure Risk Screening:: None identified. Screenin:16 Screening information is obtained from the patient. Fall risk: No risks identified. kas2 Assistance ADL's: requires no assistance with activities of daily living. Abuse/DV Screen: The patient / caregiver reports he/she is: not in a situation that causes fear, pain or injury. Nutritional screening: No deficits noted. Advance Directives: Currently, there is no health care proxy. There is no active DNR order. There is no living will. There is no Power of Roll Tester. home support is adequate. Assessment: 18:54 General: Appears in no apparent distress, Behavior is appropriate for age, cooperative, po pleasant. Pain: Denies pain. Neurological: Level of Consciousness is awake, alert, Oriented to person, place, time, Beam Department Supervisor are equal bilaterally Moves all extremities. Speech is normal, Facial symmetry appears normal, Pupils are PERRLA. Cardiovascular: Rhythm is sinus rhythm. Respiratory: Airway is patent Respiratory effort is even, unlabored, Breath sounds are clear bilaterally. GI: Abdomen is flat, non- distended Bowel sounds present X 4 quads. Abd is soft and non tender X 4 quads. Derm: Skin is intact, is healthy with good turgor, Skin is pink, warm & dry. 19:02 General: Verbal report given by Diogo Lorenzo RN. Assumed care of patient at this time.. kas2 19:05 General: spoke with poison control, recommendations discussed with Thomas SCHAEFERP. po 20:17 General: Appears in no apparent distress, comfortable, well nourished, well groomed, kas2 Behavior is appropriate for age, cooperative. Pain: Denies pain. Neurological: Level of Consciousness is awake, alert, Oriented to person, place, time. Cardiovascular: Capillary refill < 3 seconds Heart tones S1 S2 present Rhythm is sinus rhythm No ectopy. Respiratory: Airway is patent Respiratory effort is even, unlabored, Respiratory pattern is regular, symmetrical, Breath sounds are clear bilaterally. GI: Abdomen is flat, non- distended Bowel sounds present X 4 quads. Abd is soft and non tender X 4 quads. Derm: Skin is intact, is healthy with good turgor, Skin is dry, Skin is pink, warm & dry. Skin temperature is warm. 21:30 General: Patient laying in bed sleeping at this time. No apparent distress noted. kas2 Appears comfortable. Airway patent and respiratory pattern even and unlabored. Call carrasco within reach. Will continue to monitor.. 22:27 General: Appears in no apparent distress, comfortable, Behavior is appropriate for age, kas2 cooperative. Pain: Denies pain. Neurological: Level of Consciousness is awake, alert, Oriented to person, place, time. Cardiovascular: Rhythm is sinus rhythm No ectopy. Respiratory: Airway is patent Respiratory effort is even, unlabored, Respiratory pattern is regular, symmetrical. Derm: Skin is intact, Skin is dry, Skin is pink, warm & dry. Skin temperature is warm. 22:42 General: As RN was taking patients IV out patient stated to RN " I guess I did not take kas2 enough of the pills this time.". 22:43 General: Patient moved over to via stretcher with RN, and all of her [facility] belongings. Verbal report given to Reba Matos LPN.. 22:51 General: Appears in no apparent distress, comfortable, Behavior is cooperative. sl General: pt resting on stretcher s/o in room security observing . Respiratory: Airway is patent Respiratory effort is even, unlabored. 23:58 General: meds given to [facility] pharmacy . [facility] Mental Health Eval: 21:49 Mental health consult is initiated at 21:30. Status: The patient is not a ml4 technical services assistant or dependent. [facility] Behavioral Health: The patient is not an established patient of [facility] Behavioral Health. Referral Information: Evaluation referral is generated by [facility]. The patient was referred for evaluation because pt attempted to kill self by ingesting a handful(approximately 12 tablets) of Ativan. Subjective: The patients chief complaint is pt states, "I just couldn't take it anymore, my Bi-polar is getting worse." Pt reports feeling overwhelmed with life and feels her illness is not going to get better. Pt states, "I feel like I'm a burden to my and to my children,that's why I tried to end my life tonight." She reports suffering from Bi-polar Disorder for many years, currently seeks tx with Dr. Wood who has tired numerous medications with no effect. She describes her symptoms as "I'm really happy or severely depressed, I just wanted to fall asleep and never wake up." Pt is unable to identify any other trigger, other than her mental health illness. She continues to voice SI, no plan. Pt's was present during attempt. Pt's children(ages 7 and 10) were home, however did not witness ingestion. Mother reports the children were in the living room and pt was in the kitchen. . Delusions are denied. Patient's mood is depressed, irritable, Hallucinations are denied. 22:04 Mental Health history: Bipolar Disorder, Mental Health Admissions: Hx of ml4 hospitalizations at the [facility] and [place](Jun, 2014). Last admitted to [facility] was 07/20/12 and d/c 07/22/12. Current Outpatient Mental Health Services: Psychiatrist / Agency: Dr. Garibay, Last seen 12/02/16. . Current living environment is Family / Home Support: spouse and 2 children. The patient is . Patient presents to Emergency Department with the following symptoms within the past 2 weeks: anxiety, decreased appetite, depressed mood, feelings of helplessness/hopelessness, poor concentration, poor impulse control, sleep disturbance - insomnia, suicidal ideation with attempt/gesture by pills. Substance abuse: Patient uses tobacco less than a 1/2 a pack Frequency daily. Mental status exam: Patients appearance is appropriate, Patient's behavior is cooperative, Speech is normal. Affect is flat. Mood is depressed. Hallucinations are denied. Appetite is poor during the day, but binges at night. Memory is good. Energy level is normal. Content of thought is depressive. due to suicide attempt Thought process is intact. Cognitive level is oriented to person, place, time and situation Patient's insight is poor. Judgement is poor. Rapport with interviewer is guarded. Suicidal Ideation is present with no specific plan. Homicidal ideation is denied. Disposition: Medically cleared for disposition by Yennifer GUSTAFSON. Narrative: Awaiting medical clearance.... 22:36 Disposition: Medically cleared for disposition by Yennifer GUSTAFSON Psychiatric Consult 4 is performed by phone with Dr Jacqueline Saleem. [facility] Admission Criteria: The patient has had a suicide attempt in the recent past. as described above . The patient is experiencing suicidal ideation. The patient requires continuous observation and/or control to protect self, others or property. The patient's care requires a multi-modal treatment plan under close supervision and coordination due to the complexity and severity of the patient's symptoms. The patient requires administration and monitoring of psychoactive medications by skilled medical providers due to the side effects of the psychoactive medications or significant dosage adjustments. Legal Status: Patient's legal status will be Emergency admission: . [place] Safe Act: [place] Safe Act is applicable to this patient. The patient poses a risk to self or other and the Nursing Blood Bank Laboratory Professional has been notified. He/She will enter the patient's data. DSM-V Differential Diagnosis: Bipolar I Disorder (F31.0) Current or most recent episode unspecified (F31.9). Narrative: Notice of Status and Rights, FAQ, and Bill of Rights was given at bedside. Awaiting: transfer to [facility]. 23:11 Insurance Pre-Certification: Not Required, "Straight Medicare" . ml4 Vital Signs: 18:39 BP 130 / 88 (auto/); kas2 18:40 BP 120 / 90 RA Supine (auto/reg); Pulse 84; Resp 16; Temp 98.0(O); Pulse Ox 99% on R/A; rs6 Weight 54.43 kg; Height 5 ft. 6 in. (167.64 cm) (R); Pain 0/10; 18:40 Pulse 89 MON; Pulse Ox 98% ; kas2 18:40 Resp 18; Temp 99.0(O); Pain 0/10; kas2 18:45 BP 125 / 88 (auto/); kas2 18:45 Pulse 83 MON; Pulse Ox 98% ; kas2 19:00 BP 115 / 82 (auto/); kas2 19:00 Pulse 79 MON; Pulse Ox 97% ; kas2 19:15 BP 113 / 84 (auto/); kas2 19:15 Pulse 84 MON; kas2 19:30 BP 104 / 72 (auto/); kas2 19:30 Pulse 80 MON; kas2 19:45 BP 93 / 65 (auto/); kas2 19:45 Pulse 84 MON; kas2 20:00 BP 108 / 67 (auto/); kas2 20:00 Pulse 83 MON; kas2 20:15 BP 115 / 86 (auto/); kas2 20:15 Pulse 83 MON; kas2 20:30 BP 118 / 82 (auto/); kas2 20:30 Pulse 83 MON; kas2 20:30 Resp 20; Temp 97.9(O); Pain 0/10; kas2 20:45 BP 123 / 86 (auto/); kas2 20:45 Pulse 87 MON; kas2 21:00 BP 115 / 82 (auto/); kas2 21:00 Pulse 87 MON; kas2 21:15 BP 105 / 79 (auto/); kas2 21:15 Pulse 90 MON; Pulse Ox 97% ; kas2 21:30 BP 113 / 79 (auto/); kas2 21:30 Pulse 85 MON; Pulse Ox 97% ; kas2 21:45 BP 104 / 72 (auto/); kas2 21:45 Pulse 90 MON; Pulse Ox 95% ; kas2 22:00 BP 97 / 59 (auto/); kas2 22:00 Pulse 89 MON; kas2 22:15 BP 102 / 62 (auto/); kas2 22:15 Pulse 82 MON; Pulse Ox 95% ; kas2 22:30 BP 106 / 65 (auto/); kas2 22:30 Pulse 88 MON; Pulse Ox 96% ; kas2 23:36 BP 103 / 74; Pulse 95; Resp 16; Temp 98.8; Pulse Ox 96% on R/A; Pain 2/10; slm 18:40 Body Mass Index 19.37 (54.43 kg, 167.64 cm) rs6 Vitals: 18:40 Log In Time N/A - ambulance arrival. rs6 ED Course: 18:28 Patient visited by Mary Donohue, Numerical Control Machine Tool Operator. deg 18:28 Patient moved to Waiting deg 18:29 Diogo Lorenzo,CAREN is Primary Nurse. deg 18:29 Patient moved to 2 deg 18:33 [facility] le 18:34 Triage Initiated pml 18:35 Patient visited by Yennifer Lombardi FNP. le 18:35 Patient visited by Yennifer Lombardi FNP. le 18:39 Patient visited by Mercy Martin,CAREN. pml 18:40 Patient visited by Mercy Martin,CAREN. pml 18:40 Pt greeted and oriented to ED. Patient advised of names of staff involved in care, rs6 location of call carrasco, wait times and NPO status. Patient has correct armband on for positive identification. Placed in psych safe attire. Bed in low position. Call light in reach. Side rails up X 1. trim machine operator on. Pulse ox on. NIBP on. 18:41 Patient visited by Carolyn Vora WHISKEY FILTERER. rs6 18:58 Patient visited by Diogo Lorenzo RN. po 19:01 Radha Webster RN is Primary Nurse. kas2 19:06 Primary Nurse role handed off by Diogo Lorenzo,RN po 19:16 Patient visited by Justin Rogers PCA. jmv 19:16 EKG done. (by ED staff). Reviewed by Yennifer GUSTAFSON. jmv 20:09 [facility] Payment Agreement was scanned into [employer] and attached to record. ks16 20:17 Patient visited by Radha Webster RN. kas2 20:19 Patient visited by Radha Webster RN. kas2 21:03 Patient visited by Radha Webster RN. kas2 21:18 Drug Eval Toxicology ED Only Sent. jlm 21:35 Patient visited by Radha Webster RN. kas2 22:28 Patient visited by Radha Webster RN. kas2 22:37 Patient moved to [facility] mas 22:44 Patient visited by Radha Webster RN. kas2 22:44 Discontinued IV bleeding controlled, pressure dressing applied, No redness/swelling at [facility] site. No procedures done that require assistance. 22:52 Patient visited by Reba Matos LPN. [facility] 22:52 The patient / caregiver is instructed regarding the plan of care and ED course. [facility] 22:59 Jacqueline Saleem is Hospitalizing Provider. le 23:09 Patient visited by Iker Miranda. mas 23:10 [facility] Legal paperwork was scanned into [employer] and attached to record. ml4 23:37 Patient visited by Reba Matos LPN. rosasm 12/05 09:32 T-Sheet-- Draft Copy was scanned into [employer] and attached to record. seh 12/06 07:37 PCR was scanned into [employer] and attached to record. gb 07:38 ECG/EKG was scanned into [employer] and attached to record. gb Attachments: 23:10 [facility] Legal paperwork ml4 Order Results: Lab Order: Acetaminophen Level; SPEC'M 12/04/16 18:39 Test: ACETAMINOPHEN LEVEL; Value: < 2.0; Range: 10.0-30.0; Abnormal: Below low normal; Units: UG/ML; Status: F Lab Order: Basic Metabolic Profile; SPEC'M 12/04/16 18:39 Test: GLUCOSE, FASTING; Value: 85; Range: 70-105; Units: MG/DL; Status: F Test: BLOOD UREA NITROGEN; Value: 8; Range: 7-18; Units: MG/DL; Status: F Test: CREATININE FOR GFR; Value: 0.95; Range: 0.55-1.02; Units: MG/DL; Status: F Test: SODIUM LEVEL; Range: 136-145; Units: MEQ/L; Status: I Test: POTASSIUM SERUM; Range: 3.5-5.1; Units: MEQ/L; Status: I Test: CHLORIDE LEVEL; Range: 98-107; Units: MEQ/L; Status: I Test: CARBON DIOXIDE LEVEL; Range: 21-32; Units: MEQ/L; Status: I Test: ANION GAP; Range: 8-16; Units: MEQ/L; Status: I Test: CALCIUM LEVEL; Range: 8.5-10.1; Units: MG/DL; Status: I Test: GLOMERULAR FILTRATION RATE; Value: > 60.0; Range: >60; Status: F Test: SODIUM LEVEL; Value: 139; Range: 136-145; Units: MEQ/L; Status: F Test: POTASSIUM SERUM; Value: 3.9; Range: 3.5-5.1; Units: MEQ/L; Status: F Test: CHLORIDE LEVEL; Value: 104; Range: 98-107; Units: MEQ/L; Status: F Test: CARBON DIOXIDE LEVEL; Value: 26; Range: 21-32; Units: MEQ/L; Status: F Test: ANION GAP; Value: 9; Range: 8-16; Units: MEQ/L; Status: F Test: CALCIUM LEVEL; Value: 8.4; Range: 8.5-10.1; Abnormal: Below low normal; Units: MG/DL; Status: F Test Note: ; Units are mL/min/1.73 m2 Chronic Kidney Disease Staging per NKF: Stage I & II GFR >=60 Normal to Mildly Decreased Stage III GFR 30-59 Moderately Decreased Stage IV GFR 15-29 Severely Decreased Stage V GFR <15 Very Little GFR Left ESRD GFR <15 on ROLLER SKATER Lab Order: Complete Blood Count; SPEC'M 12/04/16 18:39 Test: WHITE BLOOD COUNT; Value: 5.6; Range: 4.0-10.0; Units: K/mm3; Status: F Test: RED BLOOD COUNT; Value: 5.22; Range: 4.00-5.40; Units: M/mm3; Status: F Test: HEMOGLOBIN; Value: 15.2; Range: 12.0-16.0; Units: g/dl; Status: F Test: HEMATOCRIT; Value: 46.0; Range: 36.0-47.0; Units: %; Status: F Test: MEAN CORPUSCULAR VOLUME; Value: 88.2; Range: 80.0-96.0; Units: fl; Status: F Test: MEAN CORPUSCULAR HEMOGLOBIN; Value: 29.2; Range: 27.0-33.0; Units: pg; Status: F Test: MEAN CORPUSCULAR HGB CONC; Value: 33.1; Range: 32.0-36.5; Units: g/dl; Status: F Test: RED CELL DISTRIBUTION WIDTH; Value: 14.3; Range: 11.5-14.5; Units: %; Status: F Test: PLATELET COUNT, AUTOMATED; Value: 225; Range: 150-450; Units: k/mm3; Status: F Lab Order: Drug Eval Toxicology ED Only; SPEC'M 12/04/16 21:14 Test: AMPHETAMINES LEVEL URINE; Value: NEGATIVE; Range: NEGATIVE; Status: F Test: BARBITURATES URINE; Value: NEGATIVE; Range: NEGATIVE; Status: F Test: BENZODIAZEPINES URINE; Value: POSITIVE; Range: NEGATIVE; Abnormal: Above high normal; Status: F Test: CANNABINOIDS URINE; Value: NEGATIVE; Range: NEGATIVE; Status: F Test: COCAINE METABOLITE URINE; Value: NEGATIVE; Range: NEGATIVE; Status: F Test: METHADONE URINE; Value: NEGATIVE; Range: NEGATIVE; Status: F Test: OPIATES URINE; Value: NEGATIVE; Range: NEGATIVE; Status: F Test: TRICYCLIC ANTIDEPRESS URINE; Value: NEGATIVE; Range: NEGATIVE; Status: F Test Note: ; ALL PRESUMPTIVE POSITIVE FINDINGS ARE UNCONFIRMED NORMAL VALUES THRESHOLD IN NG/ML AMPHETAMINES 1000 METHAMPHETAMINES 1000 BARBITURATES 300 BENZODIAZEPINES 300 CANNABINOIDS (THC) 50 COCAINE METABOLITE 300 METHADONE 300 OPIATES 300 PHENCYCLIDINE 25 TRICYCLIC ANTIDEPRESSANTS 1000 RESULTS ARE FOR MEDICAL PURPOSES ONLY. ALL URINE SPECIMENS WILL BE SAVED FOR 3 DAYS. IF CONFIRMATION OF A PRESUMPTIVE POSTIVE SCREEN RESULT IS DESIRED, CALL CHEMISTRY ([phone]) AND REQUEST URINE TO BE SENT TO REFERENCE LAB. FOR A LIST OF CLOSELY RELATED COMPOUNDS PLEASE CALL THE LAB. Lab Order: Ethyl Alcohol (ethanol); SPEC' 12/04/16 18:39 Test: ETHYL ALCOHOL (ETHANOL); Value: < 0.003; Range: 0.000-0.010; Units: %; Status: F Lab Order: HCG,Serum Qualitative; SPEC' 12/04/16 18:39 Test: HCG, SERUM QUALITATIVE; Value: NEGATIVE; Range: NEGATIVE; Status: F Lab Order: Liver Profile; SPEC' 12/04/16 18:39 Test: AST/SGOT; Value: 16; Range: 15-37; Units: U/L; Status: F Test: ALT/SGPT; Value: 27; Range: 12-78; Units: U/L; Status: F Test: ALKALINE PHOSPHATASE; Value: 77; Range: 45-117; Units: U/L; Status: F Test: BILIRUBIN,TOTAL; Value: 0.4; Range: 0.2-1.0; Units: MG/DL; Status: F Test: BILIRUBIN,DIRECT; Value: 0.1; Range: 0.0-0.2; Units: MG/DL; Status: F Test: TOTAL PROTEIN; Value: 7.0; Range: 6.4-8.2; Units: GM/DL; Status: F Test: ALBUMIN; Value: 4.1; Range: 3.2-5.2; Units: GM/DL; Status: F Test: ALBUMIN/GLOBULIN RATIO; Value: 1.41; Range: 1.00-1.93; Status: F Lab Order: Salicylate Level; SPEC' 12/04/16 18:39 Test: SALICYLATE LEVEL; Value: 3.9; Range: 5.0-30.0; Abnormal: Below low normal; Units: MG/DL; Status: F Lab Order: Thyroid Stimulating Hormone; SPEC'M 12/04/16 18:39 Test: THYROID STIMULATING HORMONE; Value: 0.875; Range: 0.358-3.740; Units: uIU/ML; Status: F Outcome: 12/04 22:44 No special radiology studies were completed. [facility] 22:52 Property removed, inventory done, secured in belongings bag- placed in locked locker. [facility] 22:59 Decision to Hospitalize by Provider. le 23:20 Discharge Assessment: patient administered narcotics - no. [facility] 23:37 The following High Risk Discharge criteria are identified: None. Admitted to [facility] accompanied by tech, via wheelchair, with chart. Condition: good. 23:39 Patient left the ED. [facility] Signatures: Mary Donohue, Numerical Control Machine Tool Operator Unit deg Diogo Lorenzo,RN RN Cheryl Heller, Reg Reg gb Elvira Crews, PSA PSA ml4 Yennifer Lombardi, LEAD PHARMACY TECHNICIAN LEAD PHARMACY TECHNICIAN Iker Ames Paulina,RN RN pml Reba Matos,HAND SOLE SEWER HAND SOLE SEWER [facility] Bria Chauhan, Numerical Control Machine Tool Operator Unit jlm Carolyn Vora, WHISKEY FILTERER WHISKEY FILTERER rs6 Jacqueline Garcia, Reg Reg ks16 Radha Webster RN RN kas2 Chiquita Hampton Jose, WHISKEY FILTERER WHISKEY FILTERER jmv Corrections: (The following items were deleted from the chart) 22:16 21:49 Subjective: The patients chief complaint is pt states, "I just couldn't take it ml4 anymore, my Bi-polar is getting worse." Pt reports feeling overwhelmed with life and feels her illness is not going to get better. Pt states, "I feel like I'm a burden to my and to my children." . ml4 Chart Complete MTDD
--- NOTE | 2016-12-07 00:40 | EDDOCDS ---
Physician Documentation [facility] Name: Robert Wagner Age: 36 yrs Sex: Female : 1980 Arrival Date: 12/04/2016 Time: 18:28 Bed [facility] Private MD: Disposition: 12/04 22:59 Critical Care: Critical care not applicable. le Disposition: 12/04/16 22:59 Hospitalization ordered by Jacqueline Saleem for Inpatient Admission. Preliminary diagnosis is Bipolar disorder, current episode depressed, severe, without psychotic features. - Bed requested for Admit. - Status is Inpatient Admission. slm - Condition is Stable. - Problem is an acute exacerbation. - Symptoms are unchanged. Historical: - Allergies: Augmentin (Vomit); - Home Meds: 1. Lamictal 100 mg oral tab 1 tab three times a day 2. fluoxetine 40 mg Oral cap 1 cap once daily 3. methylphenidate 20 mg Oral SC40 1 cap twice a day 4. propranolol 10 mg Oral tab 1 tab 3 times per day 5. lorazepam 2 mg Oral tab every 6 hours 6. oxycodone 5 mg Oral tab 1 tab daily 7. diazepam 10 mg Oral tab daily - PMHx: Bipolar disorder; - PSHx: Appendectomy; D & C; - Social history: No barriers to communication noted, The patient speaks fluent Indonesian, Speaks appropriately for age, Smoking status: Patient uses tobacco products, current every day smoker. - Family history: Not pertinent. - : The pt / caregiver states he / she is not on anticoagulants. Home medication list is obtained from the patient. - Exposure Risk Screening:: None identified. COUNTER ATTENDANT: 18:38 LMP 12/04/2016 pml Vital Signs: 18:39 BP 130 / 88 (auto/); kas2 18:40 BP 120 / 90 RA Supine (auto/reg); Pulse 84; Resp 16; Temp 98.0(O); Pulse Ox 99% on R/A; rs6 Weight 54.43 kg / 120 lbs; Height 5 ft. 6 in. (167.64 cm) (R); Pain 0/10; 18:40 Pulse 89 MON; Pulse Ox 98% ; kas2 18:40 Resp 18; Temp 99.0(O); Pain 0/10; kas2 18:45 BP 125 / 88 (auto/); kas2 18:45 Pulse 83 MON; Pulse Ox 98% ; kas2 19:00 BP 115 / 82 (auto/); kas2 19:00 Pulse 79 MON; Pulse Ox 97% ; kas2 19:15 BP 113 / 84 (auto/); kas2 19:15 Pulse 84 MON; kas2 19:30 BP 104 / 72 (auto/); kas2 19:30 Pulse 80 MON; kas2 19:45 BP 93 / 65 (auto/); kas2 19:45 Pulse 84 MON; kas2 20:00 BP 108 / 67 (auto/); kas2 20:00 Pulse 83 MON; kas2 20:15 BP 115 / 86 (auto/); kas2 20:15 Pulse 83 MON; kas2 20:30 BP 118 / 82 (auto/); kas2 20:30 Pulse 83 MON; kas2 20:30 Resp 20; Temp 97.9(O); Pain 0/10; kas2 20:45 BP 123 / 86 (auto/); kas2 20:45 Pulse 87 MON; kas2 21:00 BP 115 / 82 (auto/); kas2 21:00 Pulse 87 MON; kas2 21:15 BP 105 / 79 (auto/); kas2 21:15 Pulse 90 MON; Pulse Ox 97% ; kas2 21:30 BP 113 / 79 (auto/); kas2 21:30 Pulse 85 MON; Pulse Ox 97% ; kas2 21:45 BP 104 / 72 (auto/); kas2 21:45 Pulse 90 MON; Pulse Ox 95% ; kas2 22:00 BP 97 / 59 (auto/); kas2 22:00 Pulse 89 MON; kas2 22:15 BP 102 / 62 (auto/); kas2 22:15 Pulse 82 MON; Pulse Ox 95% ; kas2 22:30 BP 106 / 65 (auto/); kas2 22:30 Pulse 88 MON; Pulse Ox 96% ; kas2 23:36 BP 103 / 74; Pulse 95; Resp 16; Temp 98.8; Pulse Ox 96% on R/A; Pain 2/10; slm 18:40 Body Mass Index 19.37 (54.43 kg, 167.64 cm) rs6 MDM: 18:29 Consult PFS/PSA/Mobility Manager ordered. sd1 18:29 Consult PFS/PSA/Mobility Manager: Patient's case requires discussion with on-call sd1 Psychiatrist ordered. 18:29 PSA/PFS to call Nursing Cyber Reverse Engineer, to enter patient data on [place] if patient sd1 involuntarily admitted or transferred for SI or HI ordered. 18:29 Motion Picture Equipment Machinist/Pulse Ox/q 15 min VS ordered. sd1 18:29 Confirm accurate psychiatric medication list and times of last dosage ordered. sd1 18:29 Detain Pt Until Medically/PFS Cleared ordered. sd1 18:29 IV Saline Lock ordered. sd1 18:30 Acetaminophen Level Ordered. EDMS 18:30 Basic Metabolic Profile Ordered. EDMS 18:30 Complete Blood Count Ordered. EDMS 18:30 Drug Eval Toxicology ED Only Ordered. EDMS 18:30 Ethyl Alcohol (ethanol) Ordered. EDMS 18:30 HCG,Serum Qualitative Ordered. EDMS 18:30 Liver Profile Ordered. EDMS 18:30 Salicylate Level Ordered. EDMS 18:30 Thyroid Stimulating Hormone Ordered. EDMS 18:30 ECG WITH READING ER PHYS+CARDIAG ordered. EDMS 18:34 Call Poison Control ordered. le 19:35 Acetaminophen Level Reviewed. le 19:35 Basic Metabolic Profile Reviewed. le 19:35 Salicylate Level Reviewed. le 19:35 Complete Blood Count Reviewed. le 19:35 Ethyl Alcohol (ethanol) Reviewed. le 19:35 HCG,Serum Qualitative Reviewed. le 19:35 Liver Profile Reviewed. le 19:35 Thyroid Stimulating Hormone Reviewed. le 20:04 Financial registration complete. [email or web address] 20:09 [facility] Payment Agreement was scanned into [employer] and attached to record. [email or web address] 21:45 Consult PFS/PSA/Mobility Manager complete. ml4 21:45 Consult PFS/PSA/Mobility Manager: Patient's case requires discussion with on-call 4 Psychiatrist complete. 21:45 PSA/PFS to call Nursing Cyber Reverse Engineer, to enter patient data [place] if patient ml4 involuntarily admitted or transferred for SI or HI complete. 22:29 Drug Eval Toxicology ED Only Reviewed. le 22:32 The patient has been medically cleared for psychiatric evaluation, admission and/or le transfer. 22:33 BED REQUEST+ADM ordered. EDMS 23:06 Admit to [facility]: ordered. EDMS 23:07 REGULAR DIET ordered. EDMS 23:10 [facility] Legal paperwork was scanned into [employer] and attached to record. [facility] 12/05 09:32 T-Sheet-- Draft Copy was scanned into [employer] and attached to record. [facility] 12/06 07:37 PCR was scanned into [employer] and attached to record. 07:38 ECG/EKG was scanned into [employer] and attached to record. Signatures: Dispatcher [employer] EDMS Chiquita Mariee, MD BAUMAN sd1 Diogo Lorenzo,RN RN Cheryl Heller, Reg Reg gb Mars, Elvira, PSA PSA ml4 Yennifer Lombardi, ANIMAL CARE TAKER ANIMAL CARE TAKER Mercy TeagueRN Reba Bass,SECTION LABORER SECTION LABORER slJacqueline Bryant, Reg Reg ks16 Chiquita Hampton [facility] The chart was reviewed and I authenticate all verbal orders and agree with the evaluation and treatment provided.Corrections: (The following items were deleted from the chart) 12/04 21:11 19:36 Straight cath ordered. [email or web address] Attachments: 20:09 [facility] Payment Agreement [email or web address] 12/05 09:32 T-Sheet-- Draft Copy [facility] 07:38 ECG/EKG Chart Complete MTDD
--- NOTE | 2016-12-07 00:40 | EDDOCDS ---
Physician Documentation [facility] Name: Robert Wagner Age: 36 yrs Sex: Female : 1980 Arrival Date: 12/04/2016 Time: 18:28 Bed [facility] Private MD: Disposition: 12/04 22:59 Critical Care: Critical care not applicable. le Disposition: 12/04/16 22:59 Hospitalization ordered by Jacqueline Saleem for Inpatient Admission. Preliminary diagnosis is Bipolar disorder, current episode depressed, severe, without psychotic features. - Bed requested for Admit. - Status is Inpatient Admission. slm - Condition is Stable. - Problem is an acute exacerbation. - Symptoms are unchanged. Historical: - Allergies: Augmentin (Vomit); - Home Meds: 1. Lamictal 100 mg oral tab 1 tab three times a day 2. fluoxetine 40 mg Oral cap 1 cap once daily 3. methylphenidate 20 mg Oral SC40 1 cap twice a day 4. propranolol 10 mg Oral tab 1 tab 3 times per day 5. lorazepam 2 mg Oral tab every 6 hours 6. oxycodone 5 mg Oral tab 1 tab daily 7. diazepam 10 mg Oral tab daily - PMHx: Bipolar disorder; - PSHx: Appendectomy; D & C; - Social history: No barriers to communication noted, The patient speaks fluent Sinhala, Speaks appropriately for age, Smoking status: Patient uses tobacco products, current every day smoker. - Family history: Not pertinent. - : The pt / caregiver states he / she is not on anticoagulants. Home medication list is obtained from the patient. - Exposure Risk Screening:: None identified. BUSINESS SUPPORT COORDINATOR: 18:38 LMP 12/04/2016 pml Vital Signs: 18:39 BP 130 / 88 (auto/); kas2 18:40 BP 120 / 90 RA Supine (auto/reg); Pulse 84; Resp 16; Temp 98.0(O); Pulse Ox 99% on R/A; rs6 Weight 54.43 kg / 120 lbs; Height 5 ft. 6 in. (167.64 cm) (R); Pain 0/10; 18:40 Pulse 89 MON; Pulse Ox 98% ; kas2 18:40 Resp 18; Temp 99.0(O); Pain 0/10; kas2 18:45 BP 125 / 88 (auto/); kas2 18:45 Pulse 83 MON; Pulse Ox 98% ; kas2 19:00 BP 115 / 82 (auto/); kas2 19:00 Pulse 79 MON; Pulse Ox 97% ; kas2 19:15 BP 113 / 84 (auto/); kas2 19:15 Pulse 84 MON; kas2 19:30 BP 104 / 72 (auto/); kas2 19:30 Pulse 80 MON; kas2 19:45 BP 93 / 65 (auto/); kas2 19:45 Pulse 84 MON; kas2 20:00 BP 108 / 67 (auto/); kas2 20:00 Pulse 83 MON; kas2 20:15 BP 115 / 86 (auto/); kas2 20:15 Pulse 83 MON; kas2 20:30 BP 118 / 82 (auto/); kas2 20:30 Pulse 83 MON; kas2 20:30 Resp 20; Temp 97.9(O); Pain 0/10; kas2 20:45 BP 123 / 86 (auto/); kas2 20:45 Pulse 87 MON; kas2 21:00 BP 115 / 82 (auto/); kas2 21:00 Pulse 87 MON; kas2 21:15 BP 105 / 79 (auto/); kas2 21:15 Pulse 90 MON; Pulse Ox 97% ; kas2 21:30 BP 113 / 79 (auto/); kas2 21:30 Pulse 85 MON; Pulse Ox 97% ; kas2 21:45 BP 104 / 72 (auto/); kas2 21:45 Pulse 90 MON; Pulse Ox 95% ; kas2 22:00 BP 97 / 59 (auto/); kas2 22:00 Pulse 89 MON; kas2 22:15 BP 102 / 62 (auto/); kas2 22:15 Pulse 82 MON; Pulse Ox 95% ; kas2 22:30 BP 106 / 65 (auto/); kas2 22:30 Pulse 88 MON; Pulse Ox 96% ; kas2 23:36 BP 103 / 74; Pulse 95; Resp 16; Temp 98.8; Pulse Ox 96% on R/A; Pain 2/10; slm 18:40 Body Mass Index 19.37 (54.43 kg, 167.64 cm) rs6 MDM: 18:29 Consult PFS/PSA/Automobile Parker ordered. sd1 18:29 Consult PFS/PSA/Automobile Parker: Patient's case requires discussion with on-call sd1 Psychiatrist ordered. 18:29 PSA/PFS to call Nursing Front Office Spec, to enter [place] data [place] if patient sd1 involuntarily admitted or transferred for SI or HI ordered. 18:29 Credit Card Control Clerk/Pulse Ox/q 15 min VS ordered. sd1 18:29 Confirm accurate psychiatric medication list and times of last dosage ordered. sd1 18:29 Detain Pt Until Medically/PFS Cleared ordered. sd1 18:29 IV Saline Lock ordered. sd1 18:30 Acetaminophen Level Ordered. EDMS 18:30 Basic Metabolic Profile Ordered. EDMS 18:30 Complete Blood Count Ordered. EDMS 18:30 Drug Eval Toxicology ED Only Ordered. EDMS 18:30 Ethyl Alcohol (ethanol) Ordered. EDMS 18:30 HCG,Serum Qualitative Ordered. EDMS 18:30 Liver Profile Ordered. EDMS 18:30 Salicylate Level Ordered. EDMS 18:30 Thyroid Stimulating Hormone Ordered. EDMS 18:30 ECG WITH READING ER PHYS+CARDIAG ordered. EDMS 18:34 Call Poison Control ordered. le 19:35 Acetaminophen Level Reviewed. le 19:35 Basic Metabolic Profile Reviewed. le 19:35 Salicylate Level Reviewed. le 19:35 Complete Blood Count Reviewed. le 19:35 Ethyl Alcohol (ethanol) Reviewed. le 19:35 HCG,Serum Qualitative Reviewed. le 19:35 Liver Profile Reviewed. le 19:35 Thyroid Stimulating Hormone Reviewed. le 20:04 Financial registration complete. [email or web address] 20:09 [facility] Payment Agreement was scanned into [employer] and attached to record. [email or web address] 21:45 Consult PFS/PSA/Automobile Parker complete. ml4 21:45 Consult PFS/PSA/Automobile Parker: Patient's case requires discussion with on-call 4 Psychiatrist complete. 21:45 PSA/PFS to call Nursing Front Office Spec, to enter patient data [place] if patient ml4 involuntarily admitted or transferred for SI or HI complete. 22:29 Drug Eval Toxicology ED Only Reviewed. le 22:32 The patient has been medically cleared for psychiatric evaluation, admission and/or le transfer. 22:33 BED REQUEST+ADM ordered. EDMS 23:06 Admit to [facility]: ordered. EDMS 23:07 REGULAR DIET ordered. EDMS 23:10 [facility] Legal paperwork was scanned into [employer] and attached to record. [facility] 12/05 09:32 T-Sheet-- Draft Copy was scanned into [employer] and attached to record. [facility] 12/06 07:37 PCR was scanned into [employer] and attached to record. 07:38 ECG/EKG was scanned into [employer] and attached to record. Signatures: Dispatcher [employer] EDMS Chiquita Mariee, MD BAUMAN sd1 Diogo Lorenzo,RN RN Cheryl Heller, Reg Reg gb Mars, Elvira, PSA PSA ml4 Yennifer Lombardi, PARACHUTE HARNESS RIGGER PARACHUTE HARNESS RIGGER Mercy TeagueRN Reba Bass,LOCATOR SPECIALIST LOCATOR SPECIALIST slJacqueline Bryant, Reg Reg ks16 Chiquita Hampton [facility] The chart was reviewed and I authenticate all verbal orders and agree with the evaluation and treatment provided.Corrections: (The following items were deleted from the chart) 12/04 21:11 19:36 Straight cath ordered. [email or web address] Attachments: 20:09 [facility] Payment Agreement [email or web address] 12/05 09:32 T-Sheet-- Draft Copy [facility] 07:38 ECG/EKG Chart Complete MTDD
[2016-12-07 06:28] VITALS: BP 102/55
[2016-12-07] MEDS ORDERED: FLUoxetine 20 MG CAP PO SCH (09:00)
[2016-12-07] MEDS: lamoTRIgine 100MG TAB PO SCH (09:11)
[2016-12-07] MEDS ORDERED: LAMO10TA PO (11:11)
[2016-12-07] MEDS ORDERED: FLUO20CA9 PO (11:11)
--- NOTE | 2016-12-09 08:25 | MHDS ---
DATE OF ADMISSION: 12/05/2016 DATE OF DISCHARGE: 12/07/2016 LEGAL STATUS AT ADMISSION: 9.39 legal status. HISTORY OF PRESENT ILLNESS: The following information is obtained from evaluation by Dr. Pitts, her progress note, and my own progress notes. On 12/05/2016, Dr. Pitts wrote: This is a 36-year-old white female who was admitted after she took anywhere from 12 to 15 tablets of Ativan as a suicide attempt. Basically, the patient indicated that she was feeling she was a burden to her family, that she is overwhelmed with dealing with her bipolar disorder, and she feels that treatment has never been helpful. She has been seeing a prior psychiatrist in the area, Dr. Wood, for the past 6 years, and he has put her on the following medications: Lamictal 100 mg three times a day and Prozac 40 mg daily. He has her diagnosed as bipolar disorder, but the patient says that she has tried lithium and has tried many other atypicals with no response or side effects. This includes Seroquel, which she said caused her blood pressure to decrease. She also had some side effects with Geodon but was not specific about it. She said Abilify was not effective. She was on Latuda but is vague as to why that was not effective. She said that she was prescribed Zyprexa, and she gained some weight and she does not want anything that is going to cause weight gain. She was on Rexulti, but it was too expensive and she could not afford it. She said lithium did not help. 2012 had mentioned she was being treated with Saphris at one point and Effexor was being tapered at that point. Also mentioned in that record that the patient had been on Wellbutrin and Viibryd. She says Dr. Wood had given her a prescription for Risperdal the last time that he saw her but she has not even picked it up from the pharmacy yet because she ended up in the hospital. In addition, Dr. Wood has prescribed her methylphenidate 20 mg twice a day. It is not clear whether the patient actually has attention deficit hyperactivity disorder (ADHD). She says that he gave her the methylphenidate ("because I have problems with focus and my energy level)." She says that he has also prescribed oxycodone 5 mg daily for her but will prescribe it only for stints up to 2 weeks at a time because he does not want her to get addicted to it. She says that he prescribes the oxycodone for her also to help her with her mood. In addition, Dr. Wood prescribes Lorazepam 2 mg every 6 hours as needed, diazepam 10 mg daily, and propranolol 10 mg three times a day. Dr. Pitts also said the patient states that she spent more time in depressed episodes and only occasionally has manic episodes. I asked her to describe the manic episodes, and she describes that she gets promiscuous and that she has increased spending. She stated that she tends to drink and that she has had at least one manic episode when she was drinking to the point where she was passing out. She states that she had more hypomanic episodes where she says that, "I feel like I am full of ideas and I don't want to sleep; I feel like I want to save for world." So, basically, she describes having more depressed episodes. I did review a record from initial assessment that was done by Dr. Brunson in July of 2013 where he described that she is depressed and it can go on for weeks, sometimes months, as she sleeps more than usual, loses interest in activities, she feels tired, her appetite fluctuates. She has suicidal thoughts when depressed. When she feels hypomanic or manic, she described to him it is either an elated mood or gets very irritable and requires very little sleep, has excess energy, she starts many projects that she does not complete, and spends more money than usual and has racing thoughts. She describes that occasionally she has felt she has lost touch with reality and she felt that her daughter's piggy bank was talking to her, and she also indicates that she said her alcohol intake really goes up. She indicated that she said that these episodes are happening once a twice a year. She indicated that the episodes are more frequent episodes of hypomania. When her mood is elated, she feels good, but the disruption in activity does not occur during. According to the records of Dr. Brunson, he did not elicit any history of obsessions or compulsions or any chronic anxiety or posttraumatic stress disorder (PTSD). She indicated that she has some nightmares and some vivid dreams, which are not related to any past traumatic events. She tells me today, however, that she has a lot of anxiety and that is why Dr. Wood prescribes so many benzodiazepines to her. Dr. Pitts also mentions that the review of Dr. Brunson reflected very good descriptions of all the psychotropic medications that apparently she indicated she has been given so far, including Zoloft, Effexor, Wellbutrin, Pristiq, Remeron, Abilify, Viibryd, Seroquel, Adderall, Provigil, Klonopin, Ativan, Saphris, Lamictal, Depakote, Geodon, Latuda, Topamax, oxycodone, trazodone, and Minipress. She was on thyroid medication at some point, and she received electroconvulsive therapy (ECT) on one occasion; but according to Dr. Brunson, the indications were vague and, at that point, it seemed that she might not have completed the treatment. PAST PSYCHIATRIC HISTORY: As above, patient has been diagnosed with bipolar disorder. Had one prior psychiatric admission, which was only overnight, in June 2012. LABS AT ADMISSION: CBC was within normal limits. CMP was unremarkable. TSH within normal limits. test negative. Urine drug screen (UDS) was positive for benzodiazepines; the rest was negative. Blood alcohol level was negative. HOSPITAL COURSE: Patient was admitted on 12/05/2016 on 9.39 legal status. After 24 hours of admission, patient reported that she felt she could continue her treatment on outpatient basis and that she felt that she did not need to be in the hospital. 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 She could not give a good explanation or details of her suicide attempt with Ativan. She was open that she may have misused them but, again, she said that she is not addicted and only takes it on rare occasions when her anxiety is very high. We discussed the treatment plan with the patient the next day. She continued to request to be discharged. She was denying any suicidal thoughts. The team planner scheduler contacted the , and he agreed that he does not feel that the patient was going to get benefit from the inpatient hospitalization. He was willing to come for a family meeting. During the family meeting, the patient's said that he has talked to the patient's sister and she is going to refrain from anxiety-provoking context with the patient. Also, it was decided that the children are going to go to a regular school so she no longer will have to do the homeschooling work and that the patient's father is getting better and is getting out of the hospital very soon. He was very supportive. He was willing to monitor the patient closely, so they both agreed that the best option is to continue with outpatient care. She will be having an appointment for counseling and also with her psychiatrist, Dr. Wood. The medication has been significantly decreased, so she is only taking Lamictal 100 mg twice a day and Prozac 20 mg. Benzodiazepine has been discontinued as well as the propranolol and the methylphenidate. At the moment of discharge, patient is in stable condition with no auditory or visual hallucinations or delusions. No suicidal or homicidal ideation. Patient is motivated to continue her treatment in outpatient basis. She is shanta for safety. MEDICATIONS AT DISCHARGE: - Prozac 20 mg daily by mouth every morning - Lamictal 100 mg by mouth twice a day MENTAL STATUS EXAMINATION AT DISCHARGE: Patient is dressed in [facility]. Patient is cooperative. Speech is clear, coherent with normal rate, and is spontaneous. Patient has good eye contact. Mood is slightly anxious and slightly depressed but significantly improved from admission. Affect is appropriate and congruent with mood. Patient is oriented to time, place, person , and situation. Maintains attention and concentration correctly. Instant recall , recent and remote memory are intact. Thought processes are coherent, logical, and goal directed. Patient does not have auditory or visual hallucinations. Patient does not have paranoid, presecretory, somatic, grandiose, or sabianist delusions. Patient is denying suicidal or homicidal ideation. Judgment and insight are fair. DISCHARGE DIAGNOSES : [place] I: Bipolar disorder, depressive episode. [place] II: Deferred. [place] III: Status post overdose. INSTRUCTIONS TO THE PATIENT: Patient is to continue taking her medications as prescribed and followup appointments. She is advised to maintain absolute sobriety from drugs and alcohol. She has a scheduled appointment for psychiatric medication management and individual psychotherapy. GRAHAM
== END 2016-12-07 14:32 | disposition home or self-care (01) | DRG 885 ==
LOC: M ED 18:28 → M PSY 12-05 00:02
PROVIDERS: ADMIT Psychiatry & Neurology Psychiatry; ATTEND Psychiatry & Neurology Psychiatry
DX: F31.4 Bipolar disorder, current episode depressed, severe, without psychotic features (principal); F17.210 Nicotine dependence, cigarettes, uncomplicated; T42.4X2A Poisoning by benzodiazepines, intentional self-harm, initial encounter; Y92.019 Unspecified place in single-family (private) house as the place of occurrence of the external cause

== ENCOUNTER → 2017-08-29 | Outpatient (REF) | payer MEDICARE ==
[~2017-08-29] MED LIST changes: -ADDE20CA PO; +ADDE20CA3 PO; +DIAZ10TA2 PO; +FLUO20CA19 PO; +LAMO10TA PO; +LEVA1TAB2 PO; -LEVA500T PO; +LORA2TAB9 PO; +METH20TA29 PO; +PROP10TA56 PO
[2017-08-29 16:12] LABS: BASO # 0.1 10^3/uL (0.0-0.2); EOS # 0.2 10^3/uL (0.0-0.50); EOS % 2.6 % (0.0-3.0); IMMATURE GRANULOCYTE % 0.3 % (0-0); LYMPH # 3.1 10^3/uL (1.5-4.5); LYMPH % 43.8 % (24.0-44.0); MEAN CORPUSCULAR HEMOGLOBIN 30.2 pg (27.0-33.0); MEAN CORPUSCULAR HGB CONC 34.2 g/dl (32.0-36.5); MEAN CORPUSCULAR VOLUME 88.4 fl (80.0-96.0); MONO # 0.7 10^3/uL (0.0-0.8); MONO % 9.8 % (0.0-5.0); NEUTROPHILS # 3.1 10^3/uL (1.8-7.7); NEUTROPHILS % 42.5 % (36.0-66.0); PLATELET COUNT, AUTOMATED 233 10^3/uL (150-450); WHITE BLOOD COUNT 7.2 10^3/uL (4.0-10.0)
[2017-08-29 16:27] LABS: ALBUMIN 3.7 GM/DL (3.2-5.2); ALBUMIN/GLOBULIN RATIO 1.28 (1.00-1.93); ALKALINE PHOSPHATASE 70 U/L (45-117); ALT/SGPT 43 U/L (12-78); ANION GAP 7 MEQ/L (8-16); AST/SGOT 18 U/L (15-37); BILIRUBIN,TOTAL 0.3 MG/DL (0.2-1.0); BLOOD UREA NITROGEN 12 MG/DL (7-18); CALCIUM LEVEL 8.8 MG/DL (8.5-10.1); CARBON DIOXIDE LEVEL 27 MEQ/L (21-32); CHLORIDE LEVEL 105 MEQ/L (98-107); CHOLESTEROL LEVEL 204 MG/DL (<200); CREATININE FOR GFR 0.91 MG/DL (0.55-1.02); FREE T4 0.97 NG/DL (0.76-1.46); GLOMERULAR FILTRATION RATE > 60.0 (>60); GLUCOSE, FASTING 114 MG/DL (70-105); POTASSIUM SERUM 4.2 MEQ/L (3.5-5.1); SODIUM LEVEL 139 MEQ/L (136-145); TOTAL PROTEIN 6.6 GM/DL (6.4-8.2); TRIGLYCERIDES LEVEL 241 MG/DL (<150)
== END ==
LOC: M SFHCSACK 10:47
PROVIDERS: ATTEND Physician Assistant
DX: Z13.220 Encounter for screening for lipoid disorders (principal); Z13.29 Encounter for screening for other suspected endocrine disorder; Z13.21 Encounter for screening for nutritional disorder; F31.9 Bipolar disorder, unspecified; F17.200 Nicotine dependence, unspecified, uncomplicated; Z79.899 Other long term (current) drug therapy

== ENCOUNTER → 2017-12-24 | Outpatient (REF) | payer MEDICARE ==
[2017-12-24 19:35] LABS: INFLUENZA A AMPLIFICATION NEGATIVE (NEGATIVE); INFLUENZA B AMPLIFICATION NEGATIVE (NEGATIVE)
== END ==
LOC: M LAB REF 12-26 14:10
DX: J11.1 Influenza due to unidentified influenza virus with other respiratory manifestations (principal)
CPT/HCPCS: 87502

== ENCOUNTER 2018-07-19 11:21 | Emergency (ER) | payer MEDICARE ==
[2018-07-19] MEDS: BENZONATATE 100 MG CAP PO (13:24)
[2018-07-19] MEDS: ACETAMINOPHEN 325 MG TAB PO (13:24)
[2018-07-19] MEDS: IPRATROPIUM 0.5MG/ALBUTEROL 2.5MG INH SOL UD 3ML (DUONEB)(J7620) NEB (13:29)
[2018-07-19 13:43] LABS: BASO % 0.5 % (0.0-1.0); EOS # 0.1 10^3/uL (0.0-0.50); EOS % 0.8 % (0.0-3.0); HEMATOCRIT 45.6 % (36.0-47.0); HEMOGLOBIN 15.5 g/dl (12.0-15.5); IMMATURE GRANULOCYTE % 0.3 % (0-3.0); LYMPH # 1.4 10^3/uL (1.5-4.5); LYMPH % 18.1 % (24.0-44.0); MEAN CORPUSCULAR HEMOGLOBIN 30.5 pg (27.0-33.0); MEAN CORPUSCULAR VOLUME 89.8 fl (80.0-96.0); MONO # 0.8 10^3/uL (0.0-0.8); MONO % 10.4 % (0.0-5.0); NEUTROPHILS # 5.6 10^3/uL (1.8-7.7); NEUTROPHILS % 69.9 % (36.0-66.0); PLATELET COUNT, AUTOMATED 187 10^3/uL (150-450); RED BLOOD COUNT 5.08 10^6/uL (4.00-5.40); RED CELL DISTRIBUTION WIDTH 13.8 % (11.5-14.5)
[2018-07-19 13:54] LABS: D-DIMER QUANT 481.8 ng/ml (<500)
[2018-07-19 14:02] LABS: CONTROL LINE MONO INT CTR LINE PRESENT; MONO SCRN NEGATIVE (NEGATIVE)
[2018-07-19 14:05] LABS: ANION GAP 8 MEQ/L (8-16); BLOOD UREA NITROGEN 7 MG/DL (7-18); CALCIUM LEVEL 8.8 MG/DL (8.5-10.1); CARBON DIOXIDE LEVEL 26 MEQ/L (21-32); CHLORIDE LEVEL 108 MEQ/L (98-107); CPK CREATINE PHOSPHOKINASE 70 U/L (26-192); CREATININE FOR GFR 0.81 MG/DL (0.55-1.30); GLOMERULAR FILTRATION RATE > 60.0 (>58); GLUCOSE, FASTING 97 MG/DL (70-100); POTASSIUM SERUM 4.1 MEQ/L (3.5-5.1); SODIUM LEVEL 142 MEQ/L (136-145)
[2018-07-21 00:06] LABS: Lyme Disease IgG/IgM Antibodie <0.91 ISR (0.00-0.90); Lyme Disease IgM Ab Quantitati <0.80 index (0.00-0.79)
== END 2018-07-19 14:59 | disposition home or self-care (01) ==
LOC: M ED 11:21
DX: J06.9 Acute upper respiratory infection, unspecified (principal); R05 Cough; F17.200 Nicotine dependence, unspecified, uncomplicated; Z88.1 Allergy status to other antibiotic agents; Z88.0 Allergy status to penicillin; Z79.899 Other long term (current) drug therapy
CPT/HCPCS: 71046

== ENCOUNTER → 2018-08-25 | Outpatient (CLI) | payer MEDICARE | LOC: M WUC 15:22 | DX: R05 Cough (principal) | CPT/HCPCS: 71046 ==

== ENCOUNTER 2022-05-11 12:02 | Emergency (ER) | payer MEDICARE ==
[~2022-05-11] VITALS: Ht 167.6 cm; Wt 58.9 kg
[~2022-05-11 12:02] MED LIST changes: +ALBU2.5V10 INH; +CEFU50TA PO; -FLUO20CA19 PO; +FLUO20CA22 PO; +KETO10TAB PO; +LAMO100T80 PO; -LAMO10TA PO; +LORA2TAB14 PO; -LORA2TAB9 PO; +PRED20TA PO; +TESS100C PO; -VICO5TAB16 PO; +VICO5TAB17 PO
[2022-05-11] MEDS ORDERED: ADDE30CA3 PO (12:15)
[2022-05-11] MEDS ORDERED: NS 1,000 ML IV ONE (13:20)
[2022-05-11] MEDS ORDERED: KETOROLAC 30 MG/ML 1ML VIAL IV ONE (13:20)
[2022-05-11] MEDS ORDERED: ONDANSETRON 4MG/2ML VIAL IV ONE (13:20)
[2022-05-11 13:35] LABS: BASO # 0.1 10^3/uL (0.0-0.2); BASO % 0.7 % (0.0-1.0); EOS # 0.1 10^3/uL (0.0-0.5); EOS % 1.7 % (0.0-3.0); HEMATOCRIT 42.3 % (36.0-47.0); HEMOGLOBIN 14.1 g/dl (12.0-15.5); LYMPH # 2.9 10^3/uL (1.5-5.0); MEAN CORPUSCULAR HEMOGLOBIN 30.6 pg (27.0-33.0); MEAN CORPUSCULAR HGB CONC 33.3 g/dl (32.0-36.5); MEAN CORPUSCULAR VOLUME 91.8 fl (80.0-96.0); MONO # 0.8 10^3/uL (0.0-0.8); MONO % 11.8 % (2.0-8.0); NEUTROPHILS # 3.1 10^3/uL (1.5-8.5); NEUTROPHILS % 44.5 % (36.0-66.0); PLATELET COUNT, AUTOMATED 228 10^3/uL (150-450); RED BLOOD COUNT 4.61 10^6/uL (4.00-5.40)
[2022-05-11] MEDS ORDERED: ISOVUE-370 76% 100ML VIAL As Ordered ONE (13:42)
[2022-05-11 14:00] LABS: ALBUMIN 3.8 GM/DL (3.2-5.2); BILIRUBIN,DIRECT 0.2 MG/DL (0.0-0.2); BILIRUBIN,TOTAL 0.5 MG/DL (0.2-1.0); C REACTIVE PROTEIN QUANTITATIV 0.33 MG/DL (0.00-0.30); PERCENT SATURATION 28.4 % (13.2-45.0)
[2022-05-11 14:08] LABS: FOLATE 14.5 NG/ML
[2022-05-11 14:28] LABS: ERYTHROCYTE SEDIMENTATION RATE 4 mm/hr (0-20)
[2022-05-11] MEDS ORDERED: PRED10TA2 PO (15:38)
[2022-05-11] MEDS ORDERED: HYDR-3713 PO (15:38)
[2022-05-11] MEDS ORDERED: ONDA4TAB6 PO (15:41)
[2022-05-11 15:51] VITALS: BP 120/87
== END 2022-05-11 15:58 | disposition home or self-care (01) ==
LOC: EDSEX 12:02 → M ED 12:02
DX: K51.90 Ulcerative colitis, unspecified, without complications (principal); N83.291 Other ovarian cyst, right side; N20.0 Calculus of kidney; E27.9 Disorder of adrenal gland, unspecified; J45.909 Unspecified asthma, uncomplicated; F31.9 Bipolar disorder, unspecified; F41.9 Anxiety disorder, unspecified; Z90.89 Acquired absence of other organs; Z88.1 Allergy status to other antibiotic agents; Z79.899 Other long term (current) drug therapy
CPT/HCPCS: 74177; 80047; 80076; 82607; 82728; 82746; 83550; 83690; 84702; 85025; 85652; 86140; 96361; 96374; 96375; 99284; J1885; J2405; Q9967

== ENCOUNTER 2023-04-01 12:35 | Emergency (ER) | payer MEDICARE ==
[~2023-04-01] VITALS: Ht 167.6 cm; Wt 63.6 kg
[~2023-04-01 12:35] MED LIST changes: +ADDE30CA3 PO; +HYDR-3713 PO; +ONDA4TAB6 PO; +PRED10TA2 PO
[2023-04-01] MEDS ORDERED: NS 1,000 ML IV SCH (12:50)
[2023-04-01 13:05] LABS: BASO # 0.1 10^3/uL (0.0-0.2); BASO % 0.6 % (0.0-1.0); EOS # 0.1 10^3/uL (0.0-0.5); EOS % 0.7 % (0.0-3.0); HEMATOCRIT 28.3 % (36.0-47.0); HEMOGLOBIN 8.7 g/dl (12.0-15.5); LYMPH # 1.9 10^3/uL (1.5-5.0); LYMPH % 23.7 % (24.0-44.0); MEAN CORPUSCULAR HEMOGLOBIN 24.6 pg (27.0-33.0); MEAN CORPUSCULAR HGB CONC 30.7 g/dl (32.0-36.5); MEAN CORPUSCULAR VOLUME 79.9 fl (80.0-96.0); MONO # 0.6 10^3/uL (0.0-0.8); MONO % 7.7 % (2.0-8.0); NEUTROPHILS # 5.4 10^3/uL (1.5-8.5); NEUTROPHILS % 66.7 % (36.0-66.0); PLATELET COUNT, AUTOMATED 177 10^3/uL (150-450); RED BLOOD COUNT 3.54 10^6/uL (4.00-5.40); WHITE BLOOD COUNT 8.1 10^3/uL (4.0-10.0)
[2023-04-01 13:32] LABS: LIPASE 23 U/L (12-53)
[2023-04-01 13:34] LABS: ALBUMIN 3.7 G/DL (3.2-5.2); ALKALINE PHOSPHATASE 62 U/L (46-116); ALT/SGPT 50 U/L (7.0-40); AST/SGOT 41 U/L (<34); BILIRUBIN,DIRECT 0.2 MG/DL (<0.4); BILIRUBIN,TOTAL 0.5 MG/DL (0.3-1.2); BLOOD UREA NITROGEN 6 MG/DL (9-23); CALCIUM LEVEL 8.3 MG/DL (8.5-10.1); CARBON DIOXIDE LEVEL 24 MMOL/L (20-31); CHLORIDE LEVEL 107 MMOL/L (98-107); CREATININE FOR GFR 0.78 MG/DL (0.55-1.30); GLOMERULAR FILTRATION RATE > 60.0 (>58); GLUCOSE, FASTING 132 MG/DL (60-100); POTASSIUM SERUM 3.7 MMOL/L (3.5-5.1); SODIUM LEVEL 142 MMOL/L (136-145)
[2023-04-01] MEDS ORDERED: MECLIZINE 25 MG TABLET PO ONE (13:45)
[2023-04-01] MEDS ORDERED: ONDANSETRON 4MG 2ML VIAL IV ONE (13:45)
[2023-04-01 13:57] LABS: HCG, SERUM QUALITATIVE NEGATIVE (NEGATIVE)
[2023-04-01] MEDS ORDERED: ISOVUE-370 76% 100ML VIAL As Ordered ONE (14:12)
[2023-04-01] MEDS ORDERED: PROMETHAZINE 25MG/ML 1ML VIAL IV ONE (14:30)
[2023-04-01 17:30] VITALS: BP 137/79
[2023-04-01] MEDS ORDERED: MECL1TAB31 PO (19:28)
== END 2023-04-01 20:13 | disposition home or self-care (01) ==
LOC: M ED 12:35
DX: H81.4 Vertigo of central origin (principal); D64.9 Anemia, unspecified; E27.9 Disorder of adrenal gland, unspecified; K51.00 Ulcerative (chronic) pancolitis without complications; Z88.1 Allergy status to other antibiotic agents; Z88.0 Allergy status to penicillin; Z79.51 Long term (current) use of inhaled steroids; Z79.899 Other long term (current) drug therapy
CPT/HCPCS: 70450; 70496; 70498; 70544; 70551; 74177; 80047; 80048; 80076; 83690; 84703; 85025; 93005; 93041; 96374; 96375; 99285; J2405; J2550; Q9967

== ENCOUNTER 2025-08-31 20:10 | Emergency (ER) | payer MEDICARE, MEDICAID ==
[~2025-08-31] VITALS: Ht 165.1 cm; Wt 60.0 kg
[~2025-08-31 20:10] MED LIST changes: +FLUO-365 PO; -FLUO20CA22 PO; +MECL-209 PO; +ONDA-282 PO; -ONDA4TAB6 PO; -PROZ20CA11 PO; +PROZ20CA12 PO
[2025-08-31 20:11] VITALS: BP 144/84; TEMP 98.5; O2SAT 97
[2025-09-01] MEDS ORDERED: ATIV1TAB7 PO (19:30)
== END 2025-08-31 21:10 | disposition left against medical advice (07) ==
LOC: M ED 20:10
DX: Z53.21 Procedure and treatment not carried out due to patient leaving prior to being seen by health care provider (principal)

== ENCOUNTER 2025-09-01 14:35 | Emergency (ER) | payer BC, MEDICARE, MEDICAID ==
[~2025-09-01] VITALS: Ht 165.1 cm; Wt 61.2 kg
[2025-09-01] MEDS: ACETAMINOPHEN 325 MG TAB PO ONE (18:26)
[2025-09-01] MEDS ORDERED: ATIV1TAB7 PO (19:30)
[2025-09-01 19:43] VITALS: BP 135/75; TEMP 98.2; O2SAT 99
[2025-09-01] MEDS: LORazepam 1 MG TAB PO STA (19:43)
== END 2025-09-01 19:48 | disposition home or self-care (01) ==
LOC: M ED 14:35
DX: H11.32 Conjunctival hemorrhage, left eye (principal); S00.93XA Contusion of unspecified part of head, initial encounter; Y92.9 Unspecified place or not applicable; Y93.9 Activity, unspecified; Y99.9 Unspecified external cause status; J45.909 Unspecified asthma, uncomplicated; Z88.1 Allergy status to other antibiotic agents; Z79.899 Other long term (current) drug therapy

== ENCOUNTER 2025-10-24 17:56 | Emergency (ER) | payer MEDICARE, BC, MEDICAID ==
[~2025-10-24] VITALS: Ht 165.1 cm; Wt 62.3 kg
[~2025-10-24 17:56] MED LIST changes: +ATIV1TAB7 PO; -PROZ20CA12 PO; +PROZ20CA25 PO
[2025-10-24] MEDS: NS (Normal Saline) 0.9% 1,000 ML IV ONE (18:58)
[2025-10-24 18:59] LABS: BASO # 0.1 10^3/uL (0.0-0.2); BASO % 1.3 % (0.0-1.0); EOS # 0.0 10^3/uL (0.0-0.5); EOS % 0.4 % (0.0-3.0); LYMPH # 1.4 10^3/uL (1.5-5.0); LYMPH % 18.9 % (24.0-44.0); MONO # 0.8 10^3/uL (0.0-0.8); MONO % 10.5 % (2.0-8.0); NEUTROPHILS # 5.2 10^3/uL (1.5-8.5); NEUTROPHILS % 68.8 % (36.0-66.0); PLATELET COUNT, AUTOMATED 119 10^3/uL (150-450)
[2025-10-24 19:14] LABS: KETONE, URINE AUTO RFX 1+ mg/dL (NEGATIVE); LEUKOCYTE ESTERASE UR AUTO RFX NEGATIVE (NEGATIVE); MUCUS, URINE RFX SMALL (NEGATIVE); NITRITE, URINE AUTO RFX NEGATIVE (NEGATIVE); RBC, URINE AUTO RFX 18 /HPF (0-3); SQUAM EPITHELIAL CELL UR AURFX 2 /HPF (0-6); WBC, URINE AUTO RFX 1 /HPF (0-3)
[2025-10-24 19:32] LABS: ALT/SGPT 43 U/L (7.0-40); AST/SGOT 128 U/L (<34); CALCIUM LEVEL 9.1 MG/DL (8.5-10.1); CARBON DIOXIDE LEVEL 23 MMOL/L (20-31); CHLORIDE LEVEL 101 MMOL/L (98-107); CREATININE FOR GFR 0.58 MG/DL (0.55-1.30); GLOMERULAR FILTRATION RATE > 90.0 (>58); POTASSIUM SERUM 4.2 MMOL/L (3.5-5.1); SODIUM LEVEL 138 MMOL/L (136-145)
[2025-10-24] MEDS ORDERED: REGL10TA6 PO (19:56)
[2025-10-24 19:57] VITALS: BP 136/79; TEMP 98; O2SAT 99
== END 2025-10-24 19:59 | disposition home or self-care (01) ==
LOC: M ED 17:56
DX: A09 Infectious gastroenteritis and colitis, unspecified (principal); R11.2 Nausea with vomiting, unspecified; H81.4 Vertigo of central origin; Z88.1 Allergy status to other antibiotic agents; Z79.899 Other long term (current) drug therapy
CPT/HCPCS: 70450; 74176; 80048; 80076; 81001; 83690; 85025; 96361; 96374; 99284; J2765